=== PATIENT | female | born 2000 | race African-American/Black ===

== ENCOUNTER 2024-12-20 14:31 | Outpatient (REF) | payer OTHER, SELFPAY ==
[2024-12-20 18:08] LABS: MANUAL DIFF FLAG NO
[2024-12-20 18:11] LABS: Hematocrit 36.3 % (37.0-47.0); Hemoglobin 11.3 g/dl (12.0-16.0); Imm Gran Abs Auto 0.01 X10*3/uL (0.00-0.03); Imm Gran Pct Auto 0.2 % (0.0-0.4); Lymphocytes Absolute Auto 3.5 X10*3/uL (1.2-4.9); Mean Corpuscular HGB Conc 31.1 g/dl (31.0-35.0); Mean Corpuscular Hemoglobin 26.4 pg (27.0-33.0); Mean Corpuscular Volume 84.8 fL (80.0-98.0); NRBC Abs Auto 0.000 X10*3/uL (0.0-0.012); NRBC Pct Auto 0.0 /100WBC (0.0-0.2); Platelet Count 292 X10*3/uL (160-400); Red Blood Count 4.28 X10*6/uL (4.20-5.50); White Blood Count 6.7 X10*3/uL (4.8-10.8)
[2024-12-20 18:37] LABS: Alanine Aminotransferase 32 U/L (0-31); Albumin Level 4.8 g/dL (3.5-5.0); Alkaline Phosphatase 78 U/L (39-117); Anion Gap 12 (12-20); Aspartate Amino Transferase 30 U/L (5-31); Blood Urea Nitrogen 12 mg/dL (9-16); Calcium 9.9 mg/dL (8.4-10.2); Carbon Dioxide 23 mmol/L (22-29); Chloride 108 mmol/L (96-108); Cholesterol 156 mg/dL (<200); Estimated Glomerular Filt Rate > 60; HDL Cholesterol 36 mg/dL (>40); Magnesium 1.8 mg/dL (1.6-2.6); Potassium 4.0 mmol/L (3.3-5.1); Sodium 139 mmol/L (135-145); Total Protein 9.0 g/dL (6.5-8.0); Triglycerides 74 mg/dL (<150)
[2024-12-20 19:02] LABS: Folate 14.4 ng/mL (> or = 4.0); Vitamin B12 334 pg/mL (200-900)
[2024-12-21 04:32] LABS: Syphilis Screen Nonreactive (Nonreactive)
[2024-12-21 04:43] LABS: HBS Num1 1.33 mIU/mL (0-7.99); HBsAGNum1 0.39 S/CO (0.00-0.99); HIV Num 1 0.06 S/CO (0.00-0.99); Hepatitis B Surface Antigen Negative (Negative); ~HepC Num1 0.18 S/CO (0.00-0.79); ~Hepatitis B Surface Antibody NONREACTIVE (Nonreactive); ~Hepatitis C Antibody Nonreactive (Nonreactive)
[2024-12-21 05:52] LABS: CT PCR Urine NOT DETECTED (Not Detect.); NG PCR Urine NOT DETECTED (Not Detect.)
[2024-12-24 05:13] LABS: VITAMIN D (1,25 OH) D3 58 pg/mL; Vit D (1,25-Dihydroxy) Total 58 pg/mL (18-72); Vitamin D (1,25 OH) D2 <8 pg/mL
[2024-12-25 19:03] LABS: Chlamydia Pneumoniae Interp. Past Infection; Chlamydia Trachomatis IgA <1:16 titer (<1:16)
== END 2024-12-20 14:32 | disposition home or self-care (01) ==
LOC: HO.HKASLDS 14:31
PROVIDERS: PCP Student in an Organized Health Care Education/Training Program; Visit Provider Student in an Organized Health Care Education/Training Program
DX: Z76.89 Persons encountering health services in other specified circumstances (principal); Z11.4 Encounter for screening for human immunodeficiency virus [HIV]; M54.50 Low back pain, unspecified; G89.29 Other chronic pain; Z20.2 Contact with and (suspected) exposure to infections with a predominantly sexual mode of transmission
CPT/HCPCS: 80053; 80061; 82607; 82652; 82746; 83036; 83735; 84443; 85025; 86631; 86632; 86706; 86780; 86803; 87340; 87389; 87491; 87591; 99202

== ENCOUNTER 2024-12-20 14:31 | Outpatient (AMB) | payer OTHER, SELFPAY ==
--- NOTE | 2024-12-20 14:33 | A.OFFPC_ITS ---
Vital Signs 12/20/24 14:37 Height 5 ft 2.99 in Weight 123 lb BMI 21.8 BP 108/67 Blood Pressure Location Lt brachial Position Sitting Respiration 16 Pulse 88 Pulse Source Pulse Oximeter Temp 98.4 F Temp Source Oral Pulse Oximetry (%) 98 Oxygen Delivery Method Room Air Intake Visit Reasons: Establish care Intake Note: Patient is a new patient here to establish care for Lumbar pain after delivery x 1 year and left eye pain. Medical records requested from [facility]. Wage Conciliator Required: Yes Wage Conciliator Language: Brissa Mcdowell Wage Conciliator Name: Nicole ID: [id number] Accompanied by: Self / Same As Patient Allergies No Known Allergies Allergy (Verified 12/20/24 14:34) Tobacco use date assessed: 12/20/24 Dental Screening Dental Screen Date: 12/20/24 Did you have a dental visit in the last 12 months?: Yes Did you have a dental problem in the last 6 months where you did not have access to dental care?: No Was dental information given to patient?: Patient has dentist HPI HPI Comments History of Present Illness Details History of Present Illness The patient is a 24-year-old female presenting with low back pain. Low back pain: - History: The pain began approximately one month ago following childbirth. - Description: The pain is localized to the right side of the spine and is mild in nature. - Progression: The pain has persisted si nce onset without significant change. - Interventions: No prior interventions such as medication or physical therapy have been attempted. Review of Systems - Musculoskeletal: Reports mild pain on the right side of the spine 10-point ROS reviewed and negative excep t as noted in HPI Past Medical History Health Maintenance - Blood work: Complete blood count, comp rehensive metabolic panel, hemoglobin A1c, lipid panel - STI screening: Chlamydia, gonorrhea, s yphilis Physical Exam General: Well-appearing, in no acute distress. Vital signs: Within normal limits. HEENT: Normocephalic, atraumatic. PERRLA, EOMI. Conjunctiva clear, sclera anicteric. Oropharynx clear, mucous membranes moist. TMs intact bilaterally. Neck: Supple, no lymphadenopathy, no thyromegaly, no JVD or carotid bruits. Cardiovascular: RRR, normal S1/S2, no murmurs, rubs, or gallops. Peripheral pulses 2+ and symmetric. No edema. Respiratory: Lungs clear to auscultation bilaterally, no wheezes, rales, or rhonchi. Normal effort. Abdomen: Soft, non-tender, non-distended. Normoactive bowel sounds. No hepatosplenomegaly, no masses. MSK: Full range of motion, no joint swelling or deformity. Normal gait. Reports a little bit of pain on the right side of the spine when touching toes. Negative straight leg test. Skin: Warm, dry, intact. No rashes, lesions, or pallor. Neuro: Alert and oriented x3. Cranial nerves II-XII intact. Strength 5/5 throughout. Sensation intact. Reflexes 2+ symmetric. Normal coordination and gait. Psych: Appropriate mood and affect. Normal judgment and insight. Plan 1. Low Back Pain - Plan: Prescribe medication, recommend stretching exercises, and follow-up in two weeks. - Referral: Physical therapy referral pr ovided. Discussion Notes I discussed with the patient the plan to manage her low back pain, including prescribing medication and recommending stretching exercises. I also explained the importance of follow-up in two weeks to assess progress and the referral to physical therapy for further management. Patient was informed and verbally consented to the use of an ambient scribe for clinic note documentation during this visit. Patient Instructions - Take prescribed medication as directed . - Perform recommended stretching exercis es daily. - Attend physical therapy sessions as sc heduled. - Return for follow-up in two weeks. [facility] Medical History (Updated 12/20/24 @ 15:01 by Jamir Manrique MD) Chronic lower back pain Encounter for screening, unspecified Family History (Updated 12/20/24 @ 14:36 by Maria G Marc MA) Father No problems noted. Father No problems noted. Social History (Updated 12/20/24 @ 14:36 by Maria G Marc MA) Housing: Apartment Alcohol intake: current Alcohol intake frequency: does not drink Patient Tobacco Use Status: Never used Tobacco service: No Current occupational status: employed Cognitive needs: No Hearing needs: No Vision needs: No Questionnaire PHQ-9 Over the last 2 weeks, how often have you been bothered by any of the following problems? 1. Little interest or pleasure in doing things: not at all 2. Feeling down, depressed, or hopeless: not at all 3. Trouble falling or staying asleep, or sleeping too much: not at all 4. Feeling tired or having little energy: more than half the days 5. Poor appetite or overeating: not at all 6. Feeling bad about yourself - or that you are a failure or have let yourself or your family down: not at all 7. Trouble concentrating on things, such as reading the newspaper or watching television: not at all 8. Moving or speaking so slowly that other people could have noticed. Or the opposite - being so fidgety or restless that you have been moving around a lot more than usual: not at all 9. Thoughts that you would be better off or of hurting yourself in some way: not at all Total score: 2 Source: Developed by Drs. Thomas Lockhart, Yuliya Okeefe, Lj Nicholas and colleagues, with an educational sierra from [employer]. Thrive Questionnaire I am a: Patient What is your living situation today?: I have a steady place to live Within the past 12 months, did the food you bought not last and you didn't have the money to get more?: Never true Within the past 12 months, did you worry whether your food would run out before you got money to buy more?: Never true Do you have trouble paying for medicines?: No Do you have trouble getting transportation to medical appointments?: No Do you have trouble paying your heating and electricity bill?: Yes Do you have trouble taking care of your child, family member or friend?: No Are you currently unemployed and looking for a job?: No Are you interested in more education?: Yes Please select the resources that you would like help with: Education Currently or been in a relationship where the following occur: I choose not to answer THRIVE Score: 1 AUDIT C Alcohol Use Questionnaire (AUDIT-C) 1. How often do you have a drink containing alcohol?: Never Total Score: 0 DAVID-7 AMB Questionnaire DAVID-7 Feeling nervous, anxious, or on edge: 0 = Not at all Not being able to stop or control worryin = Not at all Worrying too much about different things: 0 = Not at all Trouble relaxin = Not at all Being so restless that it is hard to sit still: 0 = Not at all Becoming easily annoyed or irritable: 0 = Not at all Feeling afraid as if something awful might happen: 0 = Not at all Total DAVID-7 score (0-4 normal; 5-9 mild; 10-14 moderate; 15-21 severe): 0 Source: Developed by Drs. Thomas Lockhart, Yuliya Okeefe, Lj Nicholas and colleagues, with an educational sierra from [employer]. Physical exam (Primary Care) Vital Signs: Last Vital Signs Temp 98.4 F 12/20/24 14:37 Pulse 88 12/20/24 14:37 Resp 16 12/20/24 14:37 BP 108/67 12/20/24 14:37 Pulse Ox 98 12/20/24 14:37 Oxygen Delivery Method Room Air 12/20/24 14:37 BMI result Body Mass Index 21.8 Tobacco/Smoking Status: Tobacco use Status Tobacco use date assessed 12/20/24 12/20/24 14:40 Patient Tobacco Use Status Never used Tobacco 12/20/24 14:40 PHQ-9: PHQ-9 Score PHQ-9: Total score 2 12/20/24 14:40 Currently or been in a relationship where the following occur: I choose not to answer Coding Level of Care Code New Pt Level 3 (05042) Diagnoses Encounter for screening, unspecified Z13.9 Chronic lower back pain M54.50; G89.29 Establishing care with new doctor, encounter for Z Screening for depression Z13.31 Screening for diabetes mellitus Z13.1 Screening for lipoid disorders Z13.220 Screening for hypertension Z13.6 Screening for HIV (human immunodeficiency virus) Z11.4 Routine screening for STI (sexually transmitted infection) Z11.3 Assessment & Plan Assessment & Plan (1) Encounter for screening, unspecified: Code(s): Z13.9 - Encounter for screening, unspecified Category: Medical (2) Chronic lower back pain: Code(s): M54.50 - Low back pain, unspecified; G89.29 - Other chronic pain Category: Medical (3) Establishing care with new doctor, encounter for: Code(s): Z76.89 - Persons encountering health services in other specified circumstances (4) Screening for depression: Code(s): Z13.31 - Encounter for screening for depression (5) Screening for diabetes mellitus: Code(s): Z13.1 - Encounter for screening for diabetes mellitus (6) Screening for lipoid disorders: Code(s): Z13.220 - Encounter for screening for lipoid disorders (7) Screening for hypertension: Code(s): Z13.6 - Encounter for screening for cardiovascular disorders (8) Screening for HIV (human immunodeficiency virus): Code(s): Z11.4 - Encounter for screening for human immunodeficiency virus [HIV] (9) Routine screening for STI (sexually transmitted infection): Code(s): Z11.3 - Encounter for screening for infections with a predominantly sexual mode of transmission Plan Orders: Orders Hemoglobin A1c Today Z13.9 - Encounter for screening, unspecified, Z76.89 - Persons encountering health services in other specified circumstances Hepatitis B Surface Antibody Today Z13.9 - Encounter for screening, unspecified, Z76.89 - Persons encountering health services in other specified circumstances TSH reflex Free T4 Today Z13.9 - Encounter for screening, unspecified, Z76.89 - Persons encountering health services in other specified circumstances Vitamin B12 and Folate Today Z13.9 - Encounter for screening, unspecified, Z76.89 - Persons encountering health services in other specified circumstances Vitamin D 1,25 dihydroxy Today Z13.9 - Encounter for screening, unspecified, Z76.89 - Persons encountering health services in other specified circumstances PT Evaluation and Treatment Today G89.29 - Other chronic pain, M54.50 - Low back pain, unspecified Complete Blood Count Auto Diff Today Z13.9 - Encounter for screening, unspecified, Z76.89 - Persons encountering health services in other specified circumstances Comprehensive Met. Panel Today Z13.9 - Encounter for screening, unspecified, Z76.89 - Persons encountering health services in other specified circumstances Hepatitis B Surface Antigen Today Z13.9 - Encounter for screening, unspecified, Z76.89 - Persons encountering health services in other specified circumstances Hepatitis C Antibody Today Z13.9 - Encounter for screening, unspecified, Z76.89 - Persons encountering health services in other specified circumstances HIV Ab/Ag Today Z13.9 - Encounter for screening, unspecified, Z76.89 - Persons encountering health services in other specified circumstances Lipid Panel Today Z13.9 - Encounter for screening, unspecified, Z76.89 - Persons encountering health services in other specified circumstances Magnesium Today Z13.9 - Encounter for screening, unspecified, Z76.89 - Persons encountering health services in other specified circumstances Chlamydia Species Ab Panel Today Z13.9 - Encounter for screening, unspecified, Z76.89 - Persons encountering health services in other specified circumstances CT NG by PCR Urine Today Z13.9 - Encounter for screening, unspecified, Z76.89 - Persons encountering health services in other specified circumstances Syphilis Screen Today Z13.9 - Encounter for screening, unspecified, Z76.89 - Persons encountering health services in other specified circumstances Medications: New ibuprofen 800 mg PO Q8H 30 tabs 0RF G89.29 - Other chronic pain, M54.50 - Low back pain, unspecified
[2024-12-20 14:37] VITALS: BP 108/67; PULSE 88; RESP 16; TEMP 36.9; O2SAT 98; BMI 21.8
--- OUTSIDE RECORDS SUMMARY | 2024-12-20 15:41 | XMS_ITS ---
Author Organization [facility] Address [address] [place] [address] Phone Care Team Providers Care Rn Anesthesiology Name Role Phone Physician, No Pcp Primary Care Provider Unavaila ble Community Health Worker Program Status:Ongoing (Active) Start date:08/02/2024 Enrollment date:08/02/2024 Enrollment reason:Referred from clinic Related service episodes:[facility] - Housing (Closed), [facility] - Transportation (Closed), [facility] - Food Insecurity (Active) Overview Community Health Worker Program Case Team Name Relationship Phone Brian Larios(Responsible Staff) Community Health Worker Continued Care and Services Coordination
--- OUTSIDE RECORDS SUMMARY | 2024-12-20 15:41 | XMS_ITS | Encounter Summary ---
Author Organization [facility] Address [address] [place] [address] Care Team Providers Care Clerk General Name Role Phone Physician, No Pcp Primary Care Provider Unavaila ble Encounter Details Date Type Department Care Team (Late st Contact Info) Description 08/21/2024 Referral Triage Person [facility] [address] [place] [id number] Stiven Carreno Social History Tobacco Use Types Packs/Day Years Used Date Smoking Tobacco: Never Smokeless Tobacco: Current Alcohol Use Standard Drinks/Week Comments Never 0 (1 standard drink = 0.6 oz pur e alcohol) Housing Instability Answer Date Recorde d Are you worried that in the next 2 months you may not have stable housing? No 08/18/2024 Food Access & Nutrition Answer Date Rec orded Do you have access to a vari ety of food including fruits and vegetables? No 08/18/2024 Access to Healthcare Answer Date Record ed Within the last 3 months, ho w many times did you visit the emergency department for your medical care? 0 08/18/2024 Health Literacy Answer Date Recorded How often do you need to hav e someone help you when you read instructions, pamphlets, or other written material from your doctor or pharmacy? Sometimes 08/18/2024 Caregiver: How often do you need to have someone help you when you read instructions, pamphlets, or other written material from your doctor or pharmacy? Not on file 08/18/2024 Financial Risk Answer Date Recorded How hard is it for you to pa y for the very basics like food, housing, medical care, and air conditioning / heating? Very hard 08/18/2024 Transportation Answer Date Recorded Has the lack of transportati on kept you from meetings, work, or from getting things needed for daily living? Yes Has the lack of transportati on kept you from medical appointments or from getting medications? Yes 08/18/2024 Social Isolation Answer Date Recorded How often do you feel lonely or isolated from those around you? Sometimes 08/18/2024 Food Risk Answer Date Recorded Within the past 12 months we worried whether our food would run out before we got money to buy more. Never true 08/18/2024 Within the past 12 months th e food we bought just didn't last and we didn't have money to get more. Never true 08/18/2024 Dependent Care Answer Date Recorded Do you need help finding or paying for care for your loved ones. For example, palliative care physician or elderly care for an older adult? No 08/18/2024 Education Answer Date Recorded Do you think completing more education or training, like finishing a GED, going to college, or learning a trade, would be helpful for you? No 08/18/2024 Employment and Income Answer Date Recor ded During the last four weeks, have you been actively looking for work? No 08/18/2024 Living Situation Answer Date Recorded What is your living situation? Unrecognized valu e 08/18/2024 Comments Yes Sex and Gender Information Value Date Recorded Sex Assigned at Female 03/26/2024 2:13 PM EST Legal Sex Female 4:49 PM EST Gender Identity Female 03/26/2024 2:13 PM EST Sexual Orientation Straight 03/26/2024 2: 13 PM EST Occupation Industry Job Start Date Job End Date [employer] Not on file Not on file Not on kajal e documented as of this encounter Functional Status * Are you deaf or do you have serious difficulty hearing? Answer Date of Assessment Author No 04/01/2024 7:49 PM EST Leidy Ku RN * Are you blind or do you have serious difficulty seeing, even when wearing glasses? Answer Date of Assessment Author No 04/01/2024 7:49 PM EST Leidy Ku, KEVIN * Do you have serious difficulty walking or climbing stairs? Answer Date of Assessment Author No 04/01/2024 7:49 PM EST Leidy Ku RN * Do you have serious difficulty dressing or bathing? Answer Date of Assessment Author No 04/01/2024 7:49 PM Leidy Carney RN * Because of a physical, mental, or emotional condition, do you have serious difficulty doing errandsalone such as visiting the doctor? Answer Date of Assessment Author No 04/01/2024 7:49 PM Leidy Carney RN documented as of this encounter Mental Status * Because of a physical, mental, or emotional condition, do you have serious difficulty concentrating, remembering, or making decisions? (5 years old or older) Answer Entry Date Author No 04/01/2024 7:49 PM Leidy Carney RN documented in this encounter Progress Notes * Stiven Carreno - 08/21/2024 4:42 PM EDT Pt is already connected with the CHW program, Brian is currently the CHW working on her case. Brian, a new referral was sent to the triage for food insecurity, housing, transportation I know you are already working with her, I just wanted to have this documented. Stiven Carreno Community Health Worker (CHW) Visitor Services Associate/Regional documented in this encounter Plan of Treatment Upcoming Encounters Date Type Department Care Team (Late st Contact Info) Description 02/28/2025 3:00 PM EST Clinical Support Obstetrics and Gynecology [address] [id number] documented as of this encounter Visit Diagnoses Not on filedocumented in this encounter Care Teams Clerk General Relationship Specialty Start Date End Date Physician, No Pcp PCP - General 03/26/24 documented as of this encounter
--- OUTSIDE RECORDS SUMMARY | 2024-12-20 15:41 | XMS_ITS | Clinical Summary ---
Author Organization [facility] Address [address] [place] [address] Phone Care Team Providers Care Team Cdl Driver Name Role Phone Physician, No Pcp Primary Care Provider Unavaila ble Allergies No known active allergies Medications vitamin iron fum-folic acid 27-0.8 mg per tablet Take 1 tablet by mouth 1 (one) time each day. 90 each 3 05/19/2024 05/19/19 26 Active ferrous gluconate (FERGON) 324 mg (38 mg iron) tablet Take 1 tablet (324 mg total) by mouth 1 (one) time each day. 90 each 1 09/14/2024 03/13/20 25 Active ibuprofen (ADVIL,MOTRIN) 600 mg tablet Take 1 tablet (600 mg total) by mouth every 6 (six) hours if needed for moderate pain. 30 tablet 10/11/2024 Active labetaloL (NORMODYNE) 100 mg tablet TAKE 1 TABLET BY MOUTH TWICE A DAY 180 tablet 10/12/2024 Active medroxyPROGESTE Duncan 150 mg/mL injection Inject 1 mL (150 mg total) into the shoulder, thigh, or buttocks 1 (one) time for 1 dose. 1 mL 3 11/22/2024 Active Hospital, Clinic, or Other Facility Administered Medication Ordered Dose Route Frequency Start Date End Date Status medroxyPROGESTERone (DEPO-PROVERA) injection 150 mgIndications:Routine follow-up,Encounter for screening for maternal depression 150 mg IM Once 11/22/2024 Active medroxyPROGESTERone (DEPO-PROVERA) injection 150 mgIndications:Surveillance for medroxyprogesterone contraception 150 mg IM Once 12/06/2024 12/06/2024 Ended Active Problems Problem Noted Date Diagnosed Date Gestational hypertension, third trimester 2024 Overview (10/11/2024): Negative PEC panel, urine tp cr ratio 0.16 D/c home on labetalol 100 BID. Normal labor 10/07/2024 GBS (group B Streptococcus c arrier), +RV culture, currently 09/18/2024 Overview (09/18/2024): IP prophylaxis Transportation insecurity 08/18/2024 Overview (08/18/2024): Seeing Misbah QUINTANILLA Food insecurity 08/18/2024 Overview (08/18/2024): Seeing Misbah QUINTANILLA Housing insecurity 08/18/2024 Overview (08/18/2024): Seeing Misbah QUINTANILLA Does not have health insurance 07/21/2024 Overview (08/18/2024): 07/21/2024 Working with Misbah QUINTANILLA to get it reinstated, will offer TDaP and 28 week labs at that time. Please resend Fe rx and confirm appt with Hematology and repeat growth with [facility] 08/18/2024 Pt reports that she now has [facility], TDaP today and orders for heme consult and growth scan placed growth restriction antepartum 07/08/2024 Overview (10/07/2024): 07/07/2024 EFW 14%, [facility] recommends f/u growth in 4 weeks 08/28/2024: Est. FW: 1863 gm 4 lb 2 oz 7 % dopplers normal; recommending weekly NST's has follow up U/S for 3 weeks per [facility] 09/18/2024 EFW 39% - no further eval needed per [facility] Alpha thalassemia silent carrier 06/05/2024 Overview (06/05/2024): Horizon 14 Panel Positive: Silent Carrier for Alpha Thalassemia (aa/a-). 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 Depending on carrier status of the patient's partner, this couple may be at increased risk to have a child with Hemoglobin H Disease. Carrier screening of the patient's partner is suggested. Partner to be tested- order & kit at [facility] on Pap smear of cervix 06/01/2024 Overview (06/01/2024): Per [facility], needs repeat Pap smears in one and two years Encounter for supervision of normal first in third trimester 05/22/2024 Overview (09/18/2024): 1. [facility] site: [place] [facility]: [address] [place] [phone] ([phone]) 2. Delivery site: [facility] 3. Mobile Mommas: No 4. Dating criteria: early ultrasound 5. Blood type: O+ 6. Genetic screening: Panorama: low-risk Horizon: alpha thal silent carrier Nuchal: Ordered Survey: MSAFP: 6. GBS: Date: 09/14 pos 7. FOB name: 8. Plans A. Epidural or other pain management - B. Labor support identified - C. Tdap - Date: 08/18/2024 Flu - Date: 05/24/2024 D. Breast or Bottle feed: E. Baby's name - F. Circumcision - 9. Hospital Course: Language barrier 05/22/2024 Overview (05/22/2024): Jamaican Creole interpretor needed for appts Anemia affecting in third trimester Overview (09/24/2024): Lab Results Component Value Date WBC 6.4 05/19/2024 RBC 3.20 (L) 05/19/2024 HGB 8.9 (L) 05/19/2024 HCT 28.0 (L) 05/19/2024 MCV 87.0 05/19/2024 MCHC 31.8 (L) 05/19/2024 RDW 13.2 05/19/2024 PLT 268 05/19/2024 MPV 10.1 05/19/2024 NRBC 0.0 05/19/2024 DIFF Lab Results Component Value Date LYMPHOPCT 32.0 05/19/2024 NEUTROABS 3.78 05/19/2024 LYMPHSABS 2.05 05/19/2024 MONOABS 0.51 05/19/2024 EOSABS 0.03 05/19/2024 BASOSABS 0.01 05/19/2024 IMMGRANABS 0.03 05/19/2024 05/19/2024 Iron twice daily ordered for anemia recheck CBC in 2-3 weeks 05/24/2024 Pt did not bean picker prescription, rx resent, advised to start today and will recheck CBC NV 06/27/2024 hgb 7.9, referred to hematology 09/21: -Published evidence reports that intravenous iron is safe and effective in the second and third trimesters of . Intravenous iron is the preferred route when the anemia is severe in the second trimester or at any time in the third trimester when there is little expectation that adequate quantities of iron will be delivered to the fetus as iron requirements increase in each trimester. -Given the advanced stage of , the potential benefits of iron infusion were discussed, noting that the response time might extend beyond the delivery date. Risks and side effects of iron infusion, including the rare risk of inducing labor and allergic reactions, were thoroughly explained. -Update labs; infusions will be ordered if indicated (patient verbally consents to it) -She is aware that if Hgb drops further, she may need to go to the ER for a blood transfusion (because we wouldn't be able to get her in until next week) -FOV prn -Follow up with collar stay fuser tender team for further management of Resolved Problems Problem Noted Date Diagnosed Date Resolved Date Threatened labor at term 10/05/2024 39 weeks gestation of 10/05/2024 10/07/2024 Encounters Date Type Department Care Team Description 12/06/2024 2:00 PM EDT Clinical Support Obstetrics and Gynecology - [facility] [address] [place] [phone] examination or test, negative result (Primary Dx); Adverse effect of medroxyprogesterone, initial encounter; Surveillance for medroxyprogesterone contraception 11/29/2024 [facility] Community Health Worker Program [address] [place] [phone] Brian Larios 11/22/2024 10:15 AM EDT Visit Obstetrics and Gynecology - [address] [phone] Miryam Myers CNM Routine follow-up (Primary Dx); Encounter for screening for maternal depression 10/17/2024 10:00 AM EDT Routine Obstetrics and Gynecology - [address] [phone] Blood pressure check (Primary Dx) 10/07/2024 9:40 AM EDT Anesthesia Event [address] [phone] Pricne Calvo DO 10/07/2024 2:42 AM EDT - 10/11/2024 6:26 PM EDT Hospital Encounter [address] [phone] Christo Gaspar MD Gestational hypertension, third trimester (Primary Dx); Normal labor; GBS (group B Streptococcus carrier), +RV culture, currently ; Housing insecurity; Food insecurity; Transportation insecurity; Does not have health insurance; growth restriction antepartum; Alpha thalassemia silent carrier; LGSIL on Pap smear of cervix; Language barrier; Encounter for supervision of normal first in third trimester; Anemia affecting in third trimester Discharge Disposition: Home or Self Care 10/05/2024 7:25 PM EDT - 10/05/2024 8:55 PM EDT Hospital Encounter [address] [phone] Myrna Golden DO Eppsteiner, Erin E, MD Discharge Disposition: Home or Self Care 10/04/2024 2:00 PM EDT Routine Obstetrics and Gynecology - [address] [phone] Miryam Myers CNM Supervision of high risk in third trimester (Primary Dx); growth restriction antepartum; 39 weeks gestation of 09/27/2024 1:30 PM EDT Routine Obstetrics and Gynecology [address] [phone] Miryam Myers, STEPHANIEM Supervision of high risk in third trimester (Primary Dx); 38 weeks gestation of ; growth restriction antepartum 09/21/2024 11:00 AM EDT Office Visit [facility] Hematology Oncology [address] [place] [phone] Dee Escobar PA Anemia affecting in third trimester (Primary Dx); Third trimester from Last 3 Months Immunizations Immunization Administration Dates Next Due Influenza trivalent, MDCK, 0 .5mL, preservative free (Flucelvax) 6mo and older 05/24/2024 Tdap Tetanus diptheria acell ular pertussis (Boostrix; Adacel) 7yo and older 08/18/2024 Surgical History Surgery Date Site/Laterality Comments NO PAST SURGERIES Medical History Medical History Date Comments Patient denies medical problems Social History Tobacco Use Types Packs/Day Years Used Date Smoking Tobacco: Never Smokeless Tobacco: Current Tobacco Cessation:Ready to Q uit: Not Asked; Counseling Given: Not Answered Alcohol Use Standard Drinks/Week Comments Never 0 [...] care for your loved ones. For example, early childhood director or elderly care for an older adult? [...] your living situation? Unrecognized valu e 08/18/2024 Interpersonal Safety Answer Date Record ed Physical Abuse Unrecognized value 10/07/2024 Verbal Abuse Unrecognized value 10/07/2024 Comments No Sex and Gender Information Value Date Recorded Sex Assigned at Female 03/26/2024 2:13 PM EST Legal Sex Female 4:49 PM EST Gender Identity Female 03/26/2024 2:13 PM EST Sexual Orientation Straight 03/26/2024 2: 13 PM EST Occupation Industry Job Start Date Job End Date [employer] Not on file Not on file Not on kajal e Obstetrics History Para Term AB IAB SAB Ectopic Multiple Livin g Live Births 1 1 1 0 1 1 Date Outcome GA Total Labor Labor/2nd/3rd Weight Sex Type Anes PTL Bruna A1 A5 Name Clin 2024 Term 39w 6d 16h 01m 13h 33m/2h 25m/0h 03m 2970 g (104.8 oz) F Vag-S pont IV,Ep idura l N Livin g 6 9 Helen Mendez CNM Complications:None Delivery Location:[facility] ([facility] Summary Episode Dates Number of Fetuses Estimated Date of Delivery 05/19/2024 - Present (12/20/2024) 1 10/09/2024 (set by Todd guillen CNM on 05/19/2024 based on Ultrasound on 03/25/2024) Dating Summary Based On MIA GA Diff Ultrasound on 03/25/2024 10/09/2024 Working GA:11w5d Alternate MIA Entry 10/08/2024 +1d Comment:Date entered prior t o episode creation Overview and Plan :Antonio Delivery Plans Acceptable blood products:All Vitals Pregravid Weight Height TWG (As of 12/20/2024) Pregrav id BMI 56.7 kg (125 lb) 1.5 m (59.06 ) 5.601 kg (12 lb 5.6 oz ) 25.20 Date GA Fund Present FHR Mvmt BP Weight Edema Alb Glu Ket Dil/ Eff/Sta 05/25/19 25 20w2d 112/6 8 57.2 kg 05/25/19 25 20w2d 0/0/ 10/06/19 25 39w3d Inpatient data not displayed here. See encounter summary. 10/08/19 25 39w6d Inpatient data not displayed here. See encounter summary. Notes Progress Notes - Visit - 11/22/2024 - GA:39w6d 11/22/2024 - 39w6d - Miryam Myers CNM Subjective Patient ID: Farrukh Mc is a 24 y.o. female. S/p , 10/08 is currently She is breast feeding with some supplementation. Contraception plan: DepoProvera [place] Depression Scale: In the Past 7 Days I have been able to laugh and see the funny side of things.: As much as I always could I have looked forward with enjoyment to things.: As much as I ever did I have blamed myself unnecessarily when things went wrong.: No, never I have been anxious or worried for no good reason.: No, not at all I have felt scared or panicky for no good reason.: No, not at all Things have been getting on top of me.: Yes, sometimes I haven't been coping as well as usual I have been so unhappy that I have had difficulty sleeping.: Yes, most of the time I have felt sad or miserable.: No, not at all I have been so unhappy that I have been crying.: No, never The thought of harming myself has occurred to me.: Hardly ever [place] Depression Scale Total: 6 Chief Complaint Patient presents with Follow-up Review of Systems Constitutional: Negative for chills, fatigue and fever. Respiratory: Negative for shortness of breath. Gastrointestinal: Negative for abdominal pain. Endocrine: Negative for cold intolerance and heat intolerance. Genitourinary: Negative for difficulty urinating, dysuria, frequency, pelvic pain, urgency, vaginal bleeding and vaginal discharge. Musculoskeletal: Negative for back pain and joint swelling. Neurological: Negative for light-headedness and headaches. Objective Vitals BP: 108/71 Weight: 56.4 kg (124 lb 6.4 oz) Physical Exam Constitutional: Appearance: Normal appearance. Genitourinary: Comments: Perineum intact Neurological: Mental Status: She is alert and oriented to person, place, and time. Assessment/Plan Routine follow-up (Primary) - medroxyPROGESTERone (DEPO-PROVERA) injection 150 mg Encounter for screening for maternal depression - Health and behavioral assessment; Future - medroxyPROGESTERone (DEPO-PROVERA) injection 150 mg Other orders - medroxyPROGESTERone 150 mg/mL injection; Inject 1 mL (150 mg total) into the shoulder, thigh, or buttocks 1 (one) time for 1 dose. Dispense: 1 mL; Refill: 3 F/u routinely Return for depo injection Pt counseled on infant pediatrian care since baby has not been seen since d/c from hospital, was escorted to pediatric dept however insurance not taken pt was given instructions to call insurance, Called dr vines at [facility] to review the findings of care, will contact [facility] to see if they can instruct pt to change her medicaid for [facility] to cover care Progress Notes - Routine Pre - 10/17/2024 - GA:39w6d 10/17/2024 - 39w6d - Angle Taylor MA Patient was seen today (10/17/2024) for blood pressure check 118/76. Pt state she has no headache and blurred vision. 10 days PP, OCP, SOB, SUTHERLAND, or visual, just feeling tired, taking PNV taking labetalol BID f/u. PP visit in 4 weeks. After School Teacher (Anusha)#[id number]. Progress Notes - Hospital En counter - 10/11/2024 - GA:39w6d 10/11/2024 - 39w6d - Lorena Nicole CNM Obstetrics Progress Note After School Teacher [id number] used Subjective Subjective Pain: denies cramps, reports pain to the perineum Bleeding: lochia moderate PO's: regular diet Voiding: without difficulty Ambulating: well Feeding: breast and formula feeding She denies headaches, visual changes and epigastric pain Objective Objective: Vital signs: (most recent): Blood pressure 132/75, pulse 74, temperature 36.8 C (98.2 F), temperature source Temporal, resp. rate 16, height 1.575 m (62.01 ), weight 62.3 kg (137 lb 5.6 oz), SpO2 100%, currently . Vitals Temp: 36.8 C (98.2 F) (10/10 2150) Heart Rate: 74 (10/10 2150) Resp: 16 (10/10 2150) BP: 132/75 (10/10 2150) Physical Exam General: well Chest/Breasts: nipples intact and breast filling Abdomen: Soft, non tender, Funds at 1 FB below midline Lochia:moderate Perineum:edema noted, no hemorrhoids Extremities: symmetric trace pedal edema Data Labs Reviewed and Significant for: Lab Results Component Value Date RBC 3.50 (L) 10/10/2024 HCT 30.2 (L) 10/10/2024 Principal Problem: Normal labor Active Problems: Anemia affecting in third trimester GBS (group B Streptococcus carrier), +RV culture, currently Elevated blood pressure reading Status Information for the patient's : Junior Mc [[id number]] [facility] 7010/[facility] 7010-1 Problem-based Assessment and Plan Farrukh Mc is a 24 y.o. day 3 s/p Vaginal, Spontaneous. 1. Post care: meeting all goals 2. Hemodynamics: stable 3. Pain: controlled 4. Method of Feeding: breast and formula feeding 5. Normotensive with labetalol 100 BID 6. Stable for discharge home today. RTO in 2-3 days for bp recheck and in 6 weeks for routine care. Lorena Nicole CNM 10/11/2024 10/10/2024 - 39w6Todd Wagoner CNM Obstetrics Progress Note Subjective Subjective: Symptoms: No shortness of breath or headache. Diet: Adequate intake. Activity level: Normal. Pain: She complains of pain that is mild. Pain is well controlled. Pain: reports mild Bleeding: lochia minimal PO's: regular diet Voiding: without difficulty Ambulating: well Feeding: breast and formula feeding Jamaican Creole After School Teacher Tereza #[id number] Used for today's ecounter She is feeling well this AM. Reports mild pain. She denies a SUTHERLAND or blurry vision at present, but reports that she Gets a SUTHERLAND every day if she does not get enough sleep . BP's were elevated yesterday and PEC labs were all WNL. She is moving her bowels and voiding normal. Bleeding is minimal. She lives with her and he is very supportive. She is breast and bottle feeding. Would like the Nexplanon for control PP. Objective Objective: General Appearance: Comfortable and well-appearing. Vital signs: (most recent): Blood pressure 128/79, pulse 63, temperature 36.9 C (98.5 F), resp. rate 19, height 1.575 m (62.01 ), weight 62.3 kg (137 lb 5.6 oz), SpO2 100%, currently . Vital signs are normal. Output: Producing urine and producing stool. Lungs: Normal effort and normal respiratory rate. Breath sounds clear to auscultation. Heart: Normal rate. Regular rhythm. Extremities: Normal range of motion. Pulses: Distal pulses are intact. Neurological: Patient is alert and oriented to person, place and time. Skin: Warm and dry. Vitals Temp: 36.9 C (98.5 F) (10/10 011) Heart Rate: 63 (10/10 117) Resp: 19 (10/10 117) BP: 128/79 (10/10 0407) Physical Exam General: well Chest/Breasts: nipples intact Fundus Fundal Tone: Firm Fundal Position: Midline Fundus Location: 1 below umbilicus Lochia Lochia Color: Rubra Amount: Light Lochia Odor: None Clots: None Perineum Appearance: Well approximated Intervention: Ice off Extremities: symmetric and no edema Data Labs Reviewed and Significant for: Lab Results Component Value Date RBC 3.40 (L) 10/09/2024 HCT 29.5 (L) 10/09/2024 Principal Problem: Normal labor Active Problems: Anemia affecting in third trimester GBS (group B Streptococcus carrier), +RV culture, currently Elevated blood pressure reading Status Information for the patient's : Junior Mc [[id number]] [facility] 7010/[facility] 7010-1 Problem-based Assessment and Plan Farrukh Mc is a 24 y.o. day 2 s/p Vaginal, Spontaneous. 1. Post care: meeting all goals 2. Hemodynamics: stable 3. Pain: controlled 4. Method of Feeding: breast and formula feeding 5. Anticipate discharge today after 1600 due to elevated BP's , reviewed normal labs and TP/Cr that was 0.16 explained not preeclampsia, but she should be seen in the office by the end of this week for BP check after discharge and then her normal 4-6 week PP visit as well. Todd Irizarry CNM 10/10/2024 10/09/2024 - 39w6d - Carmella Vyas MD Patient Vitals for the past 24 hrs: BP Temp Temp src Pulse Resp SpO2 10/09/24 2018 137/85 36.4 C (97.5 F) -- 63 18 100 % 10/09/24 1900 (!) 145/78 -- -- -- -- -- 10/09/24 1830 (!) 153/85 -- -- -- -- -- 10/09/24 1802 (!) 150/82 -- -- -- -- -- 10/09/24 1747 (!) 150/71 -- -- -- -- -- 10/09/24 1730 (!) 151/79 -- -- -- -- -- 10/09/24 1712 139/82 -- -- -- -- -- 10/09/24 1658 (!) 142/75 -- -- -- -- -- 10/09/24 1543 (!) 160/85 -- -- -- -- -- 10/09/24 1533 (!) 160/89 -- -- -- -- -- 10/09/24 1531 (!) 162/89 36.3 C (97.3 F) Temporal 57 16 100 % 10/09/24 0755 135/78 36.5 C (97.7 F) Temporal 65 16 100 % 10/09/24 0100 129/70 36.8 C (98.2 F) Temporal 80 16 100 % Farrukh Mc, 24 y.o., s/p #1. PPD1 Elevated BP r/O Preeclampsia Plan: -Closely Monitor BP and vital signs. -Titrate antihypertensives as needed. IV protocol ordered. -Follow up PIH labs, prot/creat ratio -Routine care -Consider Magnesium sulfate Counseled about preeclampsia. Risk and complications of preeclampsia discussed, including but not limited to risk of cardiovascular events: stroke, renal impairment,,proteinuria placental insufficiency, increased liver enzymes, risk of eclampsia, HELLP syndrome, persistency of hypertension, seizures, neurologic sequela, pulmonary edema, oliguria, increase of maternal mortality. Patient was explained about her condition and plan of care. Patient verbalized understanding of plan of care. All questions answered. 10/09/2024 - 39w6d - Carmella Vyas MD Progress note Subjective: Patient is feeling good and has no complaints. She states that abdominal pain is controlled with medications. She is tolerating regular diet, passing gas, no bowel movement yet. She states that vaginal bleeding is trending down. She is currently . Denies SOB, CP, dizziness, palpitations, fevers or any other complaints. Objective: Vitals: 10/08/24 0755 10/08/24 1556 10/09/24 0100 10/09/24 0755 BP: 115/76 108/72 129/70 135/78 BP Location: Left arm Patient Position: Lying Pulse: 88 84 80 65 Resp: 16 16 16 16 Temp: 36.7 C (98.1 F) 36.5 C (97.7 F) 36.8 C (98.2 F) 36.5 C (97.7 F) TempSrc: Temporal Temporal Temporal Temporal SpO2: 100% 100% 100% 100% Weight: Height: Physical Exam General : Alert, oriented x 3 Heart: RRR Abdomen: Soft, no tenderness, no peritoneal signs. Incision healed, dry, clean without any inflammatory signs. Extremities: No leg edema present No intake or output data in the 24 hours ending 10/09/24 1235 Lab Results Component Value Date WBC 11.6 (H) 10/07/2024 HGB 10.1 (L) 10/07/2024 HCT 31.7 (L) 10/07/2024 MCV 86.4 10/07/2024 PLT 210 10/07/2024 A/P: Farrukh Mc, 24 y.o., s/p #1. PPD1 Postop care -Uncomplicated -Meeting all milestones Acute blood loss anemia -Asymptomatic DVT prophylaxis -Encourage ambulation and SCD while in bed. Obesity Body mass index is 25.11 kg/m . Plan: -Continued monitoring of vital signs -Routine care -Anticipated discharge tomorrow Patient was explained about her condition and plan of care. Patient verbalized understanding of plan of care. All questions answered. 10/08/2024 - 39w6d - Barbara Rock LCSW Sw met with the pt at the bedside with Video stock holder Demetri #[id number] sw was consulted due to reports of housing issues and food insecurity, pt states that she lives with the FOB she does get food stamps and she will be getting WIC pt does not have a car seat in the room she states that she will have someone bring her one before she is ready to d/c pt will d/c home no services 10/08/2024 - 39w6d - Deepika Mendez CNM Obstetrics Progress Note Jamaican tyson stock holder used: [id number] Subjective Subjective Pain: reports mild cramping controlled with Tylenol and Motrin Bleeding: lochia moderate PO's: regular diet Voiding: without difficulty Ambulating: well Feeding: breast and formula feeding Objective Objective: Vital signs: (most recent): Blood pressure 115/76, pulse 88, temperature 36.7 C (98.1 F), temperature source Temporal, resp. rate 16, height 1.575 m (62.01 ), weight 62.3 kg (137 lb 5.6 oz), SpO2 100%, unknown if currently . Vitals Temp: 36.7 C (98.1 F) (10/08 075) Heart Rate: 88 (10/08 075) Resp: 16 (10/08 075) BP: 115/76 (10/08 075) Physical Exam General: well Chest/Breasts: nipples intact Fundus Fundal Tone: Firm Fundal Position: Midline Fundus Location: 2 below umbilicus Lochia Lochia Color: Rubra Amount: Light Lochia Odor: None Clots: None Perineum Appearance: Swollen - no signs of hematoma, we discussed the importance of nicola care and ice packs - she is agreeable at this time. Intervention: Nicola bottle, Medicated pads, ice packs Extremities: symmetric Data Labs Reviewed and Significant for: Lab Results Component Value Date RBC 3.70 (L) 10/07/2024 HCT 31.7 (L) 10/07/2024 Principal Problem: Normal labor Active Problems: Anemia affecting in third trimester GBS (group B Streptococcus carrier), +RV culture, currently Status Information for the patient's : Junior Mc [[id number]] [facility] 7010/[facility] 7010-1 Problem-based Assessment and Plan Farrukh Mc is a 24 y.o. day 0 s/p Vaginal, Spontaneous. 1. Post care: meeting all goals 2. Hemodynamics: stable 3. Pain: controlled 4. Method of Feeding: breast and formula feeding 5. Anticipate discharge tomorrow Deepika Mendez CNM 10/08/2024 10/07/2024 - 39w5mary - Vince Sims MD OB Progress Note Subjective Patient is currently having an epidural placed for pain management, She presented with SROM and GBS positive undergoing prophylaxis with PCN. Objective Patient Active Problem List Diagnosis Date Noted Date Diagnosed Normal labor 10/07/2024 GBS (group B Streptococcus carrier), +RV culture, currently 09/18/2024 IP prophylaxis Transportation insecurity 08/18/2024 Seeing Misbah QUINTANILLA Food insecurity 08/18/2024 Seeing Misbah QUINTANILLA Housing insecurity 08/18/2024 Seeing Misbah QUINTANILLA Does not have health insurance 07/21/2024 07/21/2024 Working with Misbah QUINTANILLA to get it reinstated, will offer TDaP and 28 week labs at that time. Please resend Fe rx and confirm appt with Hematology and repeat growth with TAI 08/18/2024 Pt reports that she now has [employer] [facility], TDaP today and orders for heme consult and growth scan placed growth restriction antepartum 07/08/2024 07/07/2024 EFW 14%, [facility] recommends f/u growth in 4 weeks 08/28/2024: Est. FW: 1863 gm 4 lb 2 oz 7 % dopplers normal; recommending weekly NST's has follow up U/S for 3 weeks per [facility] 09/18/2024 EFW 39% - no further eval needed per [facility] Alpha thalassemia silent carrier 06/05/2024 Horizon 14 Panel Positive: Silent Carrier for Alpha Thalassemia (aa/a-). 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 Depending on carrier status of the patient's partner, this couple may be at increased risk to have a child with Hemoglobin H Disease. Carrier screening of the patient's partner is suggested. Partner to be tested- order & kit at [facility] on Pap smear of cervix 06/01/2024 Per [facility], needs repeat Pap smears in one and two years Encounter for supervision of normal first in third trimester 05/22/2024 1. [facility] site: [place] [facility]: [address] [place] [address] ([phone]) 2. Delivery site: [facility] 3. Mobile Mommas: No 4. Dating criteria: early ultrasound 5. Blood type: O+ 6. Genetic screening: Panorama: low-risk Horizon: alpha thal silent carrier Nuchal: Ordered Survey: MSAFP: 6. GBS: Date: 09/14 pos 7. FOB name: 8. Plans A. Epidural or other pain management - B. Labor support identified - C. Tdap - Date: 08/18/2024 Flu - Date: 05/24/2024 D. Breast or Bottle feed: E. Baby's name - F. Circumcision - 9. Hospital Course: Language barrier 05/22/2024 Jamaican Creole interpretor needed for appts Anemia affecting in third trimester 05/19/2024 Lab Results Component Value Date WBC 6.4 05/19/2024 RBC 3.20 (L) 05/19/2024 HGB 8.9 (L) 05/19/2024 HCT 28.0 (L) 05/19/2024 MCV 87.0 05/19/2024 MCHC 31.8 (L) 05/19/2024 RDW 13.2 05/19/2024 PLT 268 05/19/2024 MPV 10.1 05/19/2024 NRBC 0.0 05/19/2024 DIFF Lab Results Component Value Date LYMPHOPCT 32.0 05/19/2024 NEUTROABS 3.78 05/19/2024 LYMPHSABS 2.05 05/19/2024 MONOABS 0.51 05/19/2024 EOSABS 0.03 05/19/2024 BASOSABS 0.01 05/19/2024 IMMGRANABS 0.03 05/19/2024 05/19/2024 Iron twice daily ordered for anemia recheck CBC in 2-3 weeks 05/24/2024 Pt did not bean picker prescription, rx resent, advised to start today and will recheck CBC NV 06/27/2024 hgb 7.9, referred to hematology 09/21: -Published evidence reports that intravenous iron is safe and effective in the second and third trimesters of . Intravenous iron is the preferred route when the anemia is severe in the second trimester or at any time in the third trimester when there is little expectation that adequate quantities of iron will be delivered to the fetus as iron requirements increase in each trimester. -Given the advanced stage of , the potential benefits of iron infusion were discussed, noting that the response time might extend beyond the delivery date. Risks and side effects of iron infusion, including the rare risk of inducing labor and allergic reactions, were thoroughly explained. -Update labs; infusions will be ordered if indicated (patient verbally consents to it) -She is aware that if Hgb drops further, she may need to go to the ER for a blood transfusion (because we wouldn't be able to get her in until next week) -FOV prn -Follow up with collar stay fuser tender team for further management of Resolved Problems Diagnosis Date Diagnosed Threatened labor at term 39 weeks gestation of Current Medications: lactated Ringer's, 125 mL/hr, Last Rate: 999 mL/hr (10/07/24 0848) oxytocin, 42-333 david-units/min fentaNYL (PF)-BUPivacaine-NaCl, , , miSOPROStoL, 800 mcg, sublingual, Once oxytocin in sodium chloride 0.9 %, , , penicillin G potassium, 3 Million Units, intravenous, q4h sodium chloride, 10 mL, intravenous, BID tranexamic acid, 1 g, intravenous, Once Last Recorded Vitals: Patient Vitals for the past 24 hrs: BP Temp Temp src Pulse Resp SpO2 Height Weight 10/07/24 0929 -- 36.2 C (97.1 F) Temporal -- -- -- -- -- 10/07/24 0731 121/74 -- -- 93 -- -- -- -- 10/07/24 0730 -- 36.4 C (97.5 F) Temporal -- 16 100 % -- -- 10/07/24 0544 110/70 35.9 C (96.7 F) Temporal 91 16 -- -- -- 10/07/24 0357 126/78 -- -- 90 -- -- -- -- 10/07/24 0356 -- 36.6 C (97.8 F) Temporal -- -- -- -- -- 10/07/24 0315 -- -- -- -- -- -- 1.575 m (62.01 ) 62.3 kg (137 lb 5.6 oz) 10/07/24 0248 119/70 35.9 C (96.7 F) Temporal 93 18 -- -- -- Input/Output: No intake/output data recorded. No intake or output data in the 24 hours ending 10/07/24 0932 OBGyn Exam Last Cervical Exam: 5 cm dilated, 100 % effaced, -1 station. The fetus is in a Cephalic presentation and position. Heart Monitoring Info: Baseline 115, moderate variability, no accelerations or decelerations present. Lab Results: Recent Results (from the past 48 hours) Complete blood count Collection Time: 10/07/24 3:45 AM Result Value Ref Range WBC 11.6 (H) 4.8 - 10.8 K/mcL RBC 3.70 (L) 3.80 - 4.80 M/mcL Hemoglobin 10.1 (L) 11.5 - 16.0 g/dL Hematocrit 31.7 (L) 35.0 - 47.0 % MCV 86.4 79.0 - 98.0 FL MCH 27.5 27.0 - 32.0 pcg MCHC 31.9 (L) 32.0 - 37.0 g/dL RDW 13.6 11.0 - 15.0 % Platelets 210 130 - 400 K/mcL MPV 10.7 7.0 - 11.0 FL NRBC 0.0 <1.0 % NRBC Absolute 0.00 <0.10 K/mcL Type and screen Collection Time: 10/07/24 3:45 AM Result Value Ref Range ABO Group O Rh Type Positive Antibody Screen Negative Treponema pallidum antibody with reflex to RPR and particle agglutination Collection Time: 10/07/24 3:45 AM Result Value Ref Range T. Pallidum Antibodies Negative Negative Imaging Results: US OB Followup per Fetus OBSTETRICS REPORT (Signed Final 09/18/2024 05:14 pm) PATIENT INFO: ID #: [id number] : [birth year] (24 yrs)(F) Name: FARRUKH MC Visit Date: 09/18/2024 12:52 pm PERFORMED BY: Attending: Kassidy Dixon MD Performed By: Rosales Isaacs RDMS Referred By: Todd Irizarry [facility] Ref. Address: [address] [place] [address] Location: [facility] ([facility]) SERVICE(S) PROVIDED: [place] [id number] INDICATIONS: Maternal care for other known or suspected O36.5930 poor fet 37 weeks gestation of Z3A.37 TECHNIQUE/SCAN QUALITY: Technique: Transabdominal Scan Satisfactory Quality: OB HISTORY: : 1 Term: 0 Marvel: 0 SAB: 0 TOP: 0 Ectopic: 0 Livin VITAL SIGNS: Weight (lb) Height BMI 133 4'8 29.81 EVALUATION: Number Of Fetuses: 1 Heart Rate(bpm): 136 Cardiac Activity: Observed Presentation: Cephalic Placenta Location: Posterior Appearance: Grade 2 Relation to CVX: No previa Amniotic Fluid HOLLY FV: Within Normal Limits RUQ(cm) RLQ(cm) LUQ(cm) LLQ(cm) 3.97 2.8 3.9 4.38 HOLLY Sum(cm) %Tile Largest Pocket(cm) 15.05 56 4.38 Comment: A >2 x 2 cm pocket of fluid is noted. BIOMETRY: BPD: 90.8 mm G.Age: 36w 6d 60 % HC: 328.5 mm G.Age: 37w 2d 31 % AC: 328.7 mm G.Age: 36w 5d 58 % FL: 67.8 mm G.Age: 34w 6d 6 % CI: 76.67 % 70 - 86 FL/HC: 20.6 % 20.8 - 22.6 HC/AC: 1.00 0.92 - 1.05 FL/BPD: 74.7 % 71 - 87 FL/AC: 20.6 % 20 - 24 Est. FW: 2918 gm 6 lb 7 oz 39 % GESTATIONAL AGE: U/S Today: 36w 3d MIA: 10/13/24 Best: 37w 0d Det. By: Early Ultrasound MIA: 10/09/24 STANDARD ANATOMY: Cranium: Normal appearance Stomach: Normal appearance Kidneys: Normal appearance Bladder: Normal appearance DOPPLER - VESSELS: Umbilical Artery S/D %tile 2.3 47 COMMENTS: Ms. Mc is being seen for an assessment of growth due to size less than dates. - Patient was dated by an ultrasound at 11 weeks and 17 weeks (outside scans). - Her medical history is positive for anemia. She is a silent carrier for alpha-thalassemia. - She had cell free DNA screening performed. Results were low-risk for all conditions assessed. Ultrasound findings: Today the estimated weight is 2918g grams, at the 39th percentile. The amniotic fluid index measures 15cm, within the normal range for the gestational age. Umbilical Dopplers were within normal limits. - Plan No additional ultrasounds have been scheduled. Follow up as clinically indicated. Kassidy Dixon MD Electronically Signed Final Report 09/18/2024 05:14 pm Assessment/Plan Principal Problem: Normal labor Date Noted: 10/07/2024 Active Problems: Anemia affecting in third trimester ----Hb 10.1 today, cont Ferrous Sulfate 325 mg po daily GBS (group B Streptococcus carrier), +RV culture, currently Date Noted: 09/18/2024 Overview: IP prophylaxis on going 24 yo @ 39w5d GBS positive in labor after presenting with SROM. FWBR cat 1 and VSS wnl. -cont expected management -cont EFM/Ector as per protocol -cont pain management prn -OK for oxytocin as per protocol if clinically indicated I have reviewed her chart and she is appropriate for independent CNM care, I am available for consultation and intervention as needed. Vince Mcgregor MD 10/07/2024 - 39w5d - Ladi Serna CNM S: got some relief with Stadol, still feeling sleepy and declines any other pain mgmt at this time. Reports loss of clear fluid since 0600 O: VSS Ector: 3 ctx/10 mins FHR 140, mod variability, +accels, no decels VE 5/100/-1 A: making progress FHR cat 1 P: continue expectant mgmt for now Progress Notes - Routine Pre rodrigo - 10/04/2024 - GA:39w2d 10/04/2024 - 39w2d - Miryam Myers CNM S: 24yo G1PO IUP@ 39.2wks for nst d/t fgr O: Ob nst: intrauterine growth retardation baseline: 120 Variability: moderate Accels: 2 in 20mins up to 40mins Decels: Absent Ctx: none Findings: reactive A: 24yo G1PO IUP@ 39.2wks for nst d/t fgr P: f/u routinely 2. Nst nv with u/s to schedule for growth and dopplers Progress Notes - Routine Pre - 09/27/2024 - GA:38w2d 09/27/2024 - 38w2d - Miryam Myers CNM Subjective Chief Complaint Patient presents with Routine Visit Farrukh Mc is a 24 y.o. at 38w2d with a working estimated date of delivery of Estimated Date of Delivery: 10/09/24 by Last Menstrual Period who presents for a routine visit. She denies vaginal bleeding or leakage of fluid, denies uc. reports FM Objective Physical Exam Vitals BP: 105/67 Weight: 61.3 kg (135 lb 3.2 oz) Fundal Height (cm): 37 cm Non-Stress Test A Reason for Non-Stress Test A: Intrauterine growth restriction Variability in Waveform for Non-Stress Test A: Moderate Decelerations in Non-Stress Test A: None Accelerations in Non-Stress Test A: Yes Acoustic Stimulator for Non-Stress Test A: No Baseline Heart Rate for Non-Stress Test A: 130 BPM Uterine Irritability for Non-Stress Test A: No Contractions in Non-Stress Test A: Not present Ob check list: Tdap due: given Flu vaccine due: given If glucose completed: neg result Gbs: pos Problem list reviewed. Assessment/Plan Supervision of high risk in third trimester (Primary) 38 weeks gestation of growth restriction antepartum - nonstress test F/u routinely in 1wk Progress Notes - Routine Pre - 09/14/2024 - GA:36w3d 09/14/2024 - 36w3d - Ladi Serna CNM OB Visit: Vitals BP: 113/68 Weight: 60.3 kg Assessment Heart Rate: 130 Fundal Height (cm): 34 cm Movement: Present Presentation: Cephalic 24 y.o. old female at 36w3d. Doing well. Appropriate FM. No LOF/VB/cramping. Her only new concern is has been feelign nauseous and vomiting since Wednesday, denies fever or diarrhea, no one else in her house is ill, able to drink apple juice and eat crackers at this visit, rx for Zofran sent and advised to call if unable to keep food or fluids down for 24 hours. Advised of importance of keeping MFM appt on 09/18 and Heme appt on 09/21, pt states she will go. Otherwise healthy . Her BP is reviewed and is Normal. Tdap was offered and not indicated at today's visit. This patient has received Tdap during this . This patient does not require a urine drug screen. This patient's VTE risk status is low. Signs and symptoms of labor reviewed including reasons to call triage. Problem List reviewed and updated. RTO 1 week NST for FGR Baseline: 130 Variability: moderate Accels: 2 in 20 minutes Decels: None Contractions: Irregular Interpretation: Reactive Plan to repeat in one week Ladi Cohen CNM on 09/14/2024 at 12:34 PM EDT Progress Notes - Routine Pre rodrigo - 09/07/2024 - GA:35w3d 09/07/2024 - 35w3d - Ladi Serna CNM NST for FGR Baseline: 130 Variability: moderate Accels: 2 in 20 minutes Decels: None Contractions: None Interpretation: Reactive Plan: repeat in one week Progress Notes - Routine Pre rodrigo - 09/01/2024 - GA:34w4d 09/01/2024 - 34w4d - Ladi Serna CNM OB Visit: Vitals BP: 119/70 Weight: 61.2 kg (135 lb) Assessment Heart Rate: 135 Fundal Height (cm): 33 cm Movement: Present Presentation: Cephalic 24 y.o. old female at 34w4d. Doing well. Appropriate FM. No LOF/VB/cramping. Her only new concern is some vaginal irritation and itching. Spec exam +thick white discharge, wet prep +yeast, rx for Terazol 3 sent to pharmacy, reviewed instructions on use. Discussed dx of FGR and need for weekly NSTs as well as importance of monitoring FM and calling if any DFM. Also reviewed importance of going to heme appt on 09/21, how to get there and need to bring ID, insurance cards, and forms thaat will be sent to her. Otherwise healthy . Her BP is reviewed and is Normal. This patient does not require a urine drug screen. Signs and symptoms of labor reviewed including reasons to call triage. Problem List reviewed and updated. RTO 1 week for NST NST for FGRwet Baseline: 135 Variability: moderate Accels: 2 in 20 minutes Decels: None Contractions: None Interpretation: Reactive Ladi Cohen CNM on 09/01/2024 at 2:48 PM EDT Progress Notes - Routine Pre - 08/18/2024 - GA:32w4d 08/18/2024 - 32 - Ladi Serna CNM OB Visit: Vitals BP: 135/72 Weight: 59.9 kg (132 lb) Assessment Heart Rate: 155 Fundal Height (cm): 32 cm Movement: Present Presentation: Cephalic 24 y.o. old female at 32w4d. Doing well. Appropriate FM. No LOF/VB/cramping. Her only new concern is having difficulty falling asleep, reviewed comfort measures and will try Unisom prn, now has insurance, agrees to TDaP today. Discussed importance of hematology consult and growth scan, pt verbalized understanding, orders placed. Seeing SW today to do SIOH screening. Otherwise healthy . Her BP is reviewed and is Normal. Signs and symptoms of labor reviewed including reasons to call triage. The patient does not require anesthesia consult. Problem List reviewed and updated. RTO 2 weeks. Ladi Cohen CNM on 08/18/2024 at 2:43 PM EDT Progress Notes - Routine Pre - 07/21/2024 - GA:28w4d 07/21/2024 - - Ladi Serna CNM OB Visit: Vitals BP: 121/64 Weight: 59 kg (130 lb) Assessment Heart Rate: 140 Fundal Height (cm): 28 cm Movement: Present Presentation: Cephalic 24 y.o. old female at 28w4d. Doing well. Appropriate FM. No LOF/VB/cramping. Her only new concern is has lost health insurance, not taking Fe as rx ran out. Also notes some tooth pain and bleeding when she brushes her teeth. Otherwise healthy . Her BP is reviewed and is Normal. Tdap was deferred until pt has insurance. This patient has not received Tdap during this . This patient has not received syphilis testing during this - will do 28 week labs when insurance restored. This patient does not require a urine drug screen. Desires Tubal: No . Signs and symptoms of labor reviewed including reasons to call triage. Problem List reviewed and updated. RTO 4 weeks. Seeing social service liaison today to get insurance. [place] Depression Scale: In the Past 7 Days I have been able to laugh and see the funny side of things.: Not quite so much now I have looked forward with enjoyment to things.: As much as I ever did I have blamed myself unnecessarily when things went wrong.: Yes, some of the time I have been anxious or worried for no good reason.: No, not at all I have felt scared or panicky for no good reason.: No, not at all Things have been getting on top of me.: Yes, sometimes I haven't been coping as well as usual I have been so unhappy that I have had difficulty sleeping.: Yes, sometimes I have felt sad or miserable.: No, not at all I have been so unhappy that I have been crying.: Only occasionally The thought of harming myself has occurred to me.: Never [place] Depression Scale Total: 8 [place] SCREENING CHARGE (Clinic Only): [id number] Ladi Cohen CNM on 07/21/2024 at 3:36 PM EDT 07/21/2024 - 28w4d - Sadia Shoemaker MA [place] Depression Scale: In the Past 7 Days I have been able to laugh and see the funny side of things.: Not quite so much now I have looked forward with enjoyment to things.: As much as I ever did I have blamed myself unnecessarily when things went wrong.: Yes, some of the time I have been anxious or worried for no good reason.: No, not at all I have felt scared or panicky for no good reason.: No, not at all Things have been getting on top of me.: Yes, sometimes I haven't been coping as well as usual I have been so unhappy that I have had difficulty sleeping.: Yes, sometimes I have felt sad or miserable.: No, not at all I have been so unhappy that I have been crying.: Only occasionally The thought of harming myself has occurred to me.: Never [place] Depression Scale Total: 8 [place] SCREENING CHARGE (Clinic Only): [id number] Progress Notes - Routine Pre rodrigo - 06/21/2024 - GA:24w2d 06/21/2024 - 24w - Ladi Serna CNM OB Visit: Vitals BP: 123/74 Weight: 57.3 kg (126 lb 6.4 oz) Assessment Heart Rate: 140 Fundal Height (cm): 24 cm Movement: Present 24 y.o. old female at 24w2d. Doing well. Pos FM. No LOF/VB/cramping. Her only new concern is she missed FAS due to not feeling well, rescheduled today. States she never got a message about iron being ready at pharmacy, rx resent, pt advised to call if rx is not ready by tomorrow. Otherwise healthy . Her BP is reviewed and is Normal. She does not require a urine drug screen. Signs and symptoms of labor reviewed including reasons to call triage. Problem List reviewed and updated. RTO 4 weeks. Ladi Cohen CNM on 06/21/2024 at 3:44 PM EDT Progress Notes - Initial Pre rodrigo - 05/24/2024 - GA:20w2d 05/24/2024 - 20w2d - Angle Taylor MA INFLUENZA VACCINE The patient acknowledges that they will be receiving the Influenza (Flu) vaccine today: YES Flu vaccine formulation is: self Immunization tab reviewed: Patient acknowledges they have NOT received a flu vaccine for the [id number] YES Denies history of Guillain-[place] Syndrome (severe muscle weakness). YES Acknowledges reviewing the VIS Seasonal Flu dated 10-25-2020 (copy made available). YES Patient Denies moderate or severe illness or fever of >100 degrees F. YES Agrees to wait in the office/car for 20 minutes after receiving the influenza injection. YES No restriction for Influenza vaccine administered IM See Imm/Inj tab. Electronically signed by: Tyesha Smith 01/24/2024 11:50 AM 05/24/2024 - 2d - Ladi Serna CNM OB 12 week appt IP: Seen with assistance of Brissa Mcdowell stock holder. S: Farrukh is a 24 y.o. year old here for IP. Her is planned. She and the father of the baby are happy. No LMP recorded. Patient is . She is uncertain of her LMP with regular cycles. is currently dated by 1st trimester ultrasound only. She complains of no concerns at present . She denies vaginal bleeding or cramping. Flu vaccine: accepted She has not started taking iron. Discussed that she has concerning anemia and it is very important to start taking iron daily. O: Blood pressure 112/68, pulse 74, height 1.54 m (60.63 ), weight 57.2 kg (126 lb). See OB physical and labs. Vitals BP: 112/68 Weight: 57.2 kg (126 lb) Assessment Heart Rate: 140 Fundal Height (cm): 20 cm Movement: Present Dilation/Effacement/Station Dilation: Closed Effacement (%): 0 No results found for: ABORH Lab Results Component Value Date RH Positive 05/19/2024 A: at 20w2d weeks gestation. 1. Encounter for supervision of normal first in second trimester 2. Anemia affecting in second trimester 3. Need for prophylactic vaccination and inoculation against influenza P: Pap obtained today. Genprobe obtained today. Oriented to THoNE MG and anticipated course. Discussed collaborative practice and [facility] delivery. Reviewed healthy eating and normal weight gain in . Encouraged patient to push PO fluids. Counseled about warning signs of the first trimester and how to contact information strategist provider. Discussed the benefits of breast feeding and strongly encouraged to consider this. RTO 4 weeks. The patient does not require anesthesia consult. This patient's VTE risk status is low. [place] Depression Scale: In the Past 7 Days I have been able to laugh and see the funny side of things.: As much as I always could I have looked forward with enjoyment to things.: As much as I ever did I have blamed myself unnecessarily when things went wrong.: No, never I have been anxious or worried for no good reason.: Yes, sometimes I have felt scared or panicky for no good reason.: No, not at all Things have been getting on top of me.: No, I have been coping as well as ever I have been so unhappy that I have had difficulty sleeping.: Not at all I have felt sad or miserable.: No, not at all I have been so unhappy that I have been crying.: No, never The thought of harming myself has occurred to me.: Never [place] Depression Scale Total: 2 Ladi Cohen CNM on 05/24/2024 at 3:36 PM EST Progress Notes - Clinical [facility] pport - 05/23/2024 - GA:20w1d 05/23/2024 - 20w1d - Joyce Torres RN C/o burning with urination-urine culture ordered. 05/23/2024 - 20w1d - Joyce Torres RN OB w/u completed with interpretor#[id number] Mc is a 24 y.o. old female at 20w1d. This is [place]. The patient feels happy about the . The FOB is supportive. Patient's last menstrual period was No LMP recorded. Patient is . (exact date)., which would make her currently 20w1d with an Estimated Date of Delivery: 10/09/24. She is uncertain of her date. An ultrasound has already been performed on 04/04/24, MIA changed to 10/09/24 as dates do not agree with LMP Patient has significant history of: No previous history of OB Past Medical History: Have you had or do you currently have: Diabetes? No Hypertension? No Heart disease, Mitral valve Prolapse, or Rheumatic fever? No An Autoimmune disease such as Lupus or Rheumatoid Arthritis? No Epilepsy, Seizures, or Spells? No Migraine Headaches? No Stroke or loss of function or sensation? No Additional Questions: Have you ever been treated for anxiety and/or depression? No Are you having problems with crying spells or loss of self-esteem? No Have you ever required psychiatric care? No Have you ever had hepatitis, liver disease or jaundice? No Have you ever been treated for blood clots in your veins, deep venous thrombosis, inflammation in the veins, thrombosis, phlebitis, pulmonary embolism or varicosities? No Have you had excessive bleeding after surgery or dental work? No Do you bleed more than other women after a cut or scratch? No Do you have a history of anemia? Yes Have you ever had Thyroid problems or taken Thyroid medications? No Do you have any other Endocrine Problems (ie. PCOS)? No Have you ever been in a major accident or suffered serious trauma? No Within the last year, has anyone hit, slapped, kicked or otherwise hurt you? No In the last year, has anyone forced you to have sex when you didn't want to? No Do you feel safe at home? Yes Have you ever received a blood transfusion? No Would you refuse a blood transfusion if a doctor judged to be medically necessary? No Would you rather than receive a blood transfusion? No If you answered yes to the above questions, is this for judaism reasons? No Do you know what your blood type is or if you are Rh Negative? No Have you ever had abnormal antibodies in your blood? No Have you ever had asthma? No Have you every had Tuberculosis? No Have you ever had any breast problems? No Have you ever breast fed? No Have you ever had any gynecological surgical procedures such as cervical conization, LEEP procedure, Laser treatment, cryosurgery of the cervix or dilation and curettage, etc? No Have you had any other surgical procedures? No Have you ever been hospitalized overnight for a non-surgical reason excluding normal delivery? No Have you ever had anesthesia complications? No Have you ever had an abnormal pap smear? No Do you have a history of abnormalties of the uterus? No Did your mother take MARCY or any other hormones when she was with you? No Did it take more than one year to become ? No Have you ever been evaluated or treated for infertility? No Is there a history of medical problems in your family which you feel might adversely affect your health or ? No Do you have any other problems we have not asked you about which you feel may be important for us to know for this ? No Do you currently have any of the following symptoms since your last menstrual period: Abdominal pain, blood in the stool or urine, chest pain, shortness of breath, coughing or vomiting up blood, your heart racing or skipping beats, nausea and/or vomiting, pain on urination, or vaginal discharge or vaginal bleeding? Yes- nausea/vomiting, fatigue OB Infection History: Do you object to being tested for Hepatitis B? No Do you object to being tested for HIV? No Do you feel that you are at high risk for coming contact with the AIDS virus? No Have you ever been treated for tuberculosis? No Have you ever received the BCG vaccine? No Have you ever had a positive skin test for Tuberculosis? No Do you live with someone who has Tuberculosis? No Have you ever been exposed to Tuberculosis? No Do you have Genital Herpes? No Does your partner have Genital Herpes? No Have you had a rash or viral illness since your last period? No Have you ever had Gonorrhea, Chlamydia, Syphilis, Venereal Warts, Trichomoniasis, Pelvic Inflammatory Disease (PID) or any other sexually transmitted disease? No Do you know if you are a Group B Streptococcus Carrier? No Did you have the Chicken Pox/Varicella? No Were you vaccinated against Chicken Pox/Varicella? No Have you had any other infectious diseases? No Farrukh Mc has been instructed on the following: random urine drug screening policy and an initial urine drug screen has been ordered. Farrukh Mc has also been informed of the it consultant provider recommendation for first trimester nuchal lucency testing to be performed during her . Farrukh Mc has also been made aware of the time sensitive nature for this testing to be completed. . The patient now has a gestational age of 20w1d. The patient is beyond 14 weeks gestation and is too late for the first trimester screening. Ethnicity Based Genetic Testing has been reviewed and the [employer] information sheet has been provided to the patient in their After Visit Summary. The patient was also advised that genetic testing may not be covered by all insurances. The patients states that they understand this information. The patient states that she has not had the genetic screening for Horizon 14 done in the past during a previous .. The patient has agreed that she does want genetic testing for Horizon 14 and Panorama The following Labs have been ordered: Panorama with gender and Horizon 14 panel She is aware that her insurance may or may not cover Panorama and/or Horizon 14 test and discussed faustin only nielsen for test(s) - info given today in her after visit summary . She would like to proceed with testing. Electronically signed by: Joyce Blanton RN 05/23/24 3:11 PM EST Last Filed Vital Signs Vital Sign Reading Time Taken Comments Blood Pressure 118/70 12/06/2024 2:42 PM EDT Pulse 77 11/22/2024 10:35 AM EDT Temperature 36.7 C (98 F) 10/11/2024 5:05 PM EDT Respiratory Rate 14 11/22/2024 10:35 AM EDT Oxygen Saturation 99% 10/11/2024 5:05 PM EDT Inhaled Oxygen Concentration - - Weight 56.4 kg (124 lb 6.4 oz) 11/22/2024 10:35 AM EDT Height 150 cm (4' 11.06 ) 11/22/2024 10:35 AM ED T Body Mass Index 25.08 11/22/2024 10:35 AM EDT Plan of Treatment Upcoming Encounters Date Type Department Care Team (Late st Contact Info) Description 02/28/2025 3:00 PM EST Clinical Support Obstetrics and Gynecology [address] [id number] Health Maintenance Due Date Last Done Comments HPV Vaccines (1 - 3-dose series) 2016 Meningococcal B Vaccine (1 of 2 - Standard) 2017 Hepatitis B Vaccines (1 of 3 - 19+ 3-dose series) 2020 Depression Screening 03/22/2024 Cholesterol Screening (Lipid Panel) 03/25/2024 COVID-19 Vaccine ( - season) 2024 Influenza Vaccine (#1) 2024 05/24/2024 Gonorrhea/Chlamydia Screening 05/24/2025 05/24/2024 Social Influencers of Health Screening 08/18/2025 08/18/2024 Hypertension/CHF/CAD Annual BMP Blood Test 10/10/2025 10/10/2024, 10/09/2024, 05/06/2024, Additional history exists Cervical Cancer Screening: Pap Smear 05/25/2027 05/24/2024 DTaP,Tdap,and Td Vaccines (2 - Td or Tdap) 08/18/2034 08/18/2024 RSV Immunization Adult Patients (1 - 1-dose 75+ series) 2076 HIV Screening Completed 05/19/2024 Hepatitis C Screening Completed 05/19/2024 HIB Vaccines Aged Out No longer eligi ble based on patient's age to complete this topic Hepatitis A Vaccines Aged Out No long er eligible based on patient's age to complete this topic IPV Vaccines Aged Out No longer eligi ble based on patient's age to complete this topic MMR Vaccines Aged Out No longer eligi ble based on patient's age to complete this topic Meningococcal ACWY Vaccine Aged Out N o longer eligible based on patient's age to complete this topic Pneumococcal Vaccine: Pediatrics (0 to 5 Years) and At-Risk Patients (6 to 49 Years) Aged Out No longer eligible based on patient's age to complete this topic RSV Immunization Patients Under 20 months Aged Out No longer eligible based on patient's age to complete this topic Varicella Vaccines Aged Out No longer eligible based on patient's age to complete this topic Interventions Community Resource Recommendations Community Resource Services Recommended Domains Addressed Status Status Reason/Outcome Date/Time [facility] - Women, Infants, and Children (WIC) Nutrition Education Food Access & Nutrition 09/01/2024 3:16 PM EDT [facility] Financial Assistance Financial Risk 09/01/2024 3:16 PM EDT [employer], [facility]. - Women, Infants, & Children (WIC) Nutri Navigating the System, Nutrition Education Food Access & Nutrition, Financial Risk 09/01/2024 3:16 PM EDT [employer] ([employer]), [facility]. - Women, Infants, & Children (WIC) Nutri Navigating the System, Nutrition Education Food Access & Nutrition, Financial Risk 09/01/2024 3:16 PM EDT [employer] ([employer]), [facility]. - Women, Infants, & Children (WIC) Nutri Navigating the System, Nutrition Education Food Access & Nutrition, Financial Risk 09/01/2024 3:16 PM EDT [employer] [place] ([employer]), [facility]. - Women, Infants, & Children (WIC) Nutri Navigating the System, Nutrition Education Food Access & Nutrition, Financial Risk 09/01/2024 3:16 PM EDT [facility] - Section 8 Housing Choice Vouchers Government Benefits Financial Risk 09/01/2024 3:16 PM EDT [facility] - Women, Infants, and Children (WIC) Navigating the System, Nutrition Education Food Access & Nutrition, Financial Risk 09/01/2024 3:16 PM EDT [facility] - Women, Infants, and Children (WIC) Navigating the System, Nutrition Education Food Access & Nutrition, Financial Risk 09/01/2024 3:16 PM EDT [facility] - Women, Infants, and Children (WIC) Navigating the System, Nutrition Education Food Access & Nutrition, Financial Risk 09/01/2024 3:16 PM EDT from Last 12 Months Procedures Procedure Name Priority Date/Time Associated Diagnosis Comments POC , URINE DIAGNOSTIC Routine 12/06/2024 2:43 PM EDT examination or test, negative result EXTERNAL ULTRASOUND REPORT 10/13/2024 CBC WITH AUTO DIFFERENTIAL Routine 10/10/2024 8:28 AM EDT COMPREHENSIVE METABOLIC PANEL Routine 10/10/2024 8:28 AM EDT CBC AND DIFFERENTIAL Routine 10/10/2024 8:28 AM EDT PROTEIN AND CREATININE WITH RATIO, URINE STAT 10/09/2024 5:18 PM EDT CBC WITH AUTO DIFFERENTIAL STAT 10/09/2024 4:36 PM EDT CBC AND DIFFERENTIAL STAT 10/09/2024 4:36 PM EDT COMPREHENSIVE METABOLIC PANEL STAT 10/09/2024 4:36 PM EDT TH AN NERVE BLK LUMBAR EPIDURAL (NO CHARGE) Routine 10/07/2024 9:45 AM EDT TREPONEMA PALLIDUM ANTIBODY WITH REFLEX TO RPR AND PARTICLE AGGLUTINATION STAT 10/07/2024 3:45 AM EDT TYPE AND SCREEN STAT 10/07/2024 3:45 AM EDT COMPLETE BLOOD COUNT STAT 10/07/2024 3:45 AM EDT NONSTRESS TEST Routine 10/04/2024 2:52 PM EDT growth restriction antepartum CBC WITH AUTO DIFFERENTIAL STAT 09/21/2024 11:59 AM EDT Anemia affecting in third trimester Third trimester TYPE AND SCREEN STAT 09/21/2024 11:59 AM EDT Anemia affecting in third trimester Third trimester CBC AND DIFFERENTIAL STAT 09/21/2024 11:59 AM EDT Anemia affecting in third trimester Third trimester IRON AND TIBC Routine 09/21/2024 11:59 AM EDT Anemia affecting in third trimester Third trimester FERRITIN Routine 09/21/2024 11:59 AM EDT Anemia affecting in third trimester Third trimester PAP SMEAR Routine 05/24/2024 3:47 PM EST Encounter for supervision of normal first in second trimester CHLAMYDIA TRACHOMATIS AND NEISSERIA GONORRHOEAE BY TMA, THINPREP Routine 05/24/2024 3:47 PM EST Encounter for supervision of normal first in second trimester HEPATITIS C ANTIBODY Routine 05/19/2024 10:15 AM EST test positive HIV 1, 2 ANTIBODY, P24 ANTIGEN WITH REFLEX TO DIFFERENTIATION Routine 05/19/2024 10:15 AM EST test positive from Last 3 Months or Most Recently Relevant to Health Maintenance Results * POC , urine manually resulted (12/06/2024 2:43 PM EDT) Pathologist [facility] HCG, Ur POC Negative Negative POC hCG Int QC Pass? Yes Yes Urine Urine specimen obtained by clean catch procedure / Unknown 12/06/2024 2:43 PM EDT us Miryam Myers CNM POINT OF CARE TEST ENTER/EDIT ORDERABLES Final Result * External Ultrasound Report (10/13/2024) Anatomical Region Laterality Modality Ultrasound us Provider Onbase MD RANDALL US PROCEDURES Final Resul t * (ABNORMAL) CBC auto differential (10/10/2024 8:28 AM EDT) Only the most recent of3 resultswithin the time period is included. Pathologist [facility] WBC 9.4 4.8 - 10.8 K/mcL LAB HEMETOLOGY METHOD 10/10/2024 8:38 AM EDT [facility] RBC 3.50(L) 3.80 - 4.80 M/mcL LAB HEMETOLOGY METHOD 10/10/2024 8:38 AM EDT [facility] Hemoglobin 9.7(L) 11.5 - 16.0 g/dL LAB HEMETOLOGY METHOD 10/10/2024 8:38 AM EDT [facility] Hematocrit 30.2(L) 35.0 - 47.0 % LAB HEMETOLOGY METHOD 10/10/2024 8:38 AM EDT [facility] MCV 86.5 79.0 - 98.0 FL LAB HEMETOLOGY METHOD 10/10/2024 8:38 AM [facility] MCH 27.8 27.0 - 32.0 pcg LAB HEMETOLOGY METHOD 10/10/2024 [facility] MCHC 32.1 32.0 - 37.0 g/dL LAB HEMETOLOGY METHOD 10/10/2024 8:38 AM [facility] RDW 13.3 11.0 - 15.0 % LAB HEMETOLOGY METHOD 10/10/2024 8:38 AM [facility] Platelets 256 130 - 400 K/mcL LAB HEMETOLOGY METHOD 10/10/2024 8:38 AM [facility] MPV 10.2 7.0 - 11.0 FL LAB HEMETOLOGY METHOD 10/10/2024 8:38 AM [facility] NRBC 0.0 <1.0 % LAB HEMETOLOGY METHOD 10/10/2024 8:38 AM [facility] NRBC Absolute 0.00 <0.10 K/mcL LAB HEMETOLOGY METHOD 10/10/2024 8:38 AM [facility] Neutrophils Relative 62.5 % LAB HEMETOLOGY METHOD 10/10/2024 8:38 AM [facility] Lymphocytes Relative 23.8 % LAB HEMETOLOGY METHOD 10/10/2024 8:38 AM [facility] Monocytes Relative 8.6 % LAB HEMETOLOGY METHOD 10/10/2024 8:38 AM [facility] Eosinophils Relative 0.7 % LAB HEMETOLOGY METHOD 10/10/2024 8:38 AM EDT [facility] Basophils Relative 0.4 % LAB HEMETOLOGY METHOD 10/10/2024 8:38 AM EDT [facility] Immature Granulocytes Relative 4.0 % LAB HEMETOLOGY METHOD 10/10/2024 8:38 AM EDT [facility] Neutrophils Absolute 5.87 1.50 - 7.00 K/mcL LAB HEMETOLOGY METHOD 10/10/2024 8:38 AM EDT [facility] Lymphocytes Absolute 2.24 1.00 - 5.00 K/mcL LAB HEMETOLOGY METHOD 10/10/2024 8:38 AM EDT [facility] Monocytes Absolute 0.81 0.20 - 1.00 K/mcL LAB HEMETOLOGY METHOD 10/10/2024 8:38 AM EDT [facility] Eosinophils Absolute 0.07 0.00 - 0.50 K/mcL LAB HEMETOLOGY METHOD 10/10/2024 8:38 AM EDT [facility] Basophils Absolute 0.04 0.00 - 0.20 K/mcL LAB HEMETOLOGY METHOD 10/10/2024 8:38 AM EDT [facility] Immature Granulocytes Absolute 0.38(H) 0.00 - 0.03 K/mcL LAB HEMETOLOGY METHOD 10/10/2024 8:38 AM EDT [facility] Blood Venous blood specimen / Unknown Venipuncture / Unknown 10/10/2024 8:28 AM EDT 10/10/2024 8:34 AM EDT us Carmella Rousseau MD LAB BLOO D ORDERABLES Final Result [facility] [address] [place] [address], * (ABNORMAL) Comprehensive metabolic panel (10/10/2024 8:28 AM EDT) Only the most recent of2 resultswithin the time period is included. Sodium 140 133 - 145 mmol/L LAB CHEMISTRY METHOD 10/10/2024 9:05 AM [facility] Potassium 3.6 3.5 - 5.5 mmol/L LAB CHEMISTRY METHOD 10/10/2024 9:05 AM [facility] Chloride 109 96 - 110 mmol/L LAB CHEMISTRY METHOD 10/10/2024 9:05 AM [facility] CO2 25 21 - 32 mmol/L LAB CHEMISTRY METHOD 10/10/2024 9:05 AM [facility] Anion Gap 6 3 - 11 LAB CHEMISTRY METHOD 10/10/2024 9:05 AM [facility] Glucose 77 70 - 100 mg/dL LAB CHEMISTRY METHOD 10/10/2024 9:05 AM [facility] BUN 6 5 - 25 mg/dL LAB CHEMISTRY METHOD 10/10/2024 9:05 AM [facility] Creatinine 0.54 0.50 - 1.10 mg/dL LAB CHEMISTRY METHOD 10/10/2024 9:05 AM [facility] eGFR 133 >=60 mL/min/1. 73m2 LAB CHEMISTRY METHOD 10/10/2024 9:05 AM [facility] Comment:Calculation based on the Chronic Kidney Disease Epidemiology Collaboration (CKD-EPI) equation refit without adjustment for race. BUN/Creatinine Ratio 11.1 LAB CHEMISTRY METHOD 10/10/2024 9:05 AM [facility] Calcium 9.1 8.5 - 10.5 mg/dL LAB CHEMISTRY METHOD 10/10/2024 9:05 AM [facility] AST (SGOT) 18 10 - 42 unit/L LAB CHEMISTRY METHOD 10/10/2024 9:05 AM [facility] ALT (SGPT) 13 10 - 60 unit/L LAB CHEMISTRY METHOD 10/10/2024 9:05 AM EDT [facility] Alkaline Phosphatase 115 42 - 121 unit/L LAB CHEMISTRY METHOD 10/10/2024 9:05 AM EDT [facility] Total Protein 6.3 6.0 - 8.0 g/dL LAB CHEMISTRY METHOD 10/10/2024 9:05 AM EDT [facility] Albumin 2.3(L) 3.2 - 5.0 g/dL LAB CHEMISTRY METHOD 10/10/2024 9:05 AM EDT [facility] Total Bilirubin <0.1 0.0 - 1.4 mg/dL LAB CHEMISTRY METHOD 10/10/2024 9:05 AM EDT [facility] Blood Venous blood specimen / Unknown Venipuncture / Unknown 10/10/2024 8:28 AM EDT 10/10/2024 8:34 AM EDT us Carmella Rousseau MD LAB BLOO D ORDERABLES Final Result [facility] [address] [place] [address], * Protein and creatinine ratio, urine (10/09/2024 5:18 PM EDT) Protein, Urine 13 mg/dL LAB CHEMISTRY METHOD 10/09/2024 7:41 PM EDT [facility] Prot/Creat, Ur 0.16 <=0.20 mg/mg creat LAB CHEMISTRY METHOD 10/09/2024 7:41 PM EDT [facility] Creatinine, Urine 81.0 mg/dL LAB CHEMISTRY METHOD 10/09/2024 7:41 PM EDT [facility] Urine Urine specimen from urinary conduit / Unknown Non-blood Collection / Unknown 10/09/2024 5:18 PM EDT 10/09/2024 5:23 PM EDT us Carmella Rousseau MD LAB URIN E ORDERABLES Final Result [facility] [address] [facility] [place] [address], * TH AN NERVE BLK LUMBAR EPIDURAL (NO CHARGE) (10/07/2024 9:45 AM EDT) Prince Araya DO - 10/07/2024 9:45 AM EDT Prince Calvo DO 10/07/2024 5:52 PM Epidural Block Patient location during procedure: OB Start time: 10/07/2024 9:45 AM End time: 10/07/2024 10:15 AM Reason for block: labor epidural Staffing Performed: resident/SOCIAL WORKER CLINICAL/CAA Anesthesiologist: Prince Calvo DO Resident/SOCIAL WORKER CLINICAL: Rashaun Jimenez CRNA Performed by: Prince Calvo DO Authorized by: Prince Calvo DO Preanesthetic Checklist Completed: patient identified, IV checked, risks and benefits discussed, surgical consent, monitors and equipment checked, pre-op evaluation and timeout performed Epidural Patient Position: sitting Monitoring: heart rate, continuous pulse ox and NIBP Approach: midline Vertebral Space: lumbar Lumbar Location: L3-4 Needle Needle type: Tuohy Needle gauge: 18 G Needle length: 8.5 cm Needle insertion depth: 6 cm Catheter size: 20G. Catheter at skin depth: 11 cm Test dose: negative and lidocaine 1.5% with epinephrine 1-to-200,000 Assessment Sensory level: T10 Events: negative aspiration for heme, no paresthesia on injection and incremental injection every 5 mL Additional Notes Patient consented prior to procedure. Seated with monitors on. Back was prepped and draped and procedure took place under sterile conditions. Skin wheal placed with Lidocaine 1% (Plain) infiltration. 18G Touhy needle placed. SRUTHI with saline at 6 cm. Catheter thread easily and left at 11 cm. NO Heme on aspiration ; NO CSF on aspiration; NO Paresthesias from either needle or catheter. Patient was bolused with 6 ml of 0.1% bupivacaine with 2 mcg/ml fentanyl off the epidural bag dilute down with 7 ml of NS. Patient with improved comfort with contractions bilaterally at the conclusion of this encounter. Procedure was tolerated well. Placed in BO position subsequent to procedure completion. Prince Calvo DO ANESTHESIA ORDERABLES Edited Re sult - Final * Treponema pallidum antibody with reflex to RPR and particle agglutination (10/07/2024 3:45 AM EDT) [facility] T. Pallidum Antibodies Negative Negative LAB CHEMISTRY METHOD 10/07/2024 4:36 AM EDT [facility] Blood Venous blood specimen / Unknown Venipuncture / Unknown 10/07/2024 3:45 AM EDT 10/07/2024 3:51 AM EDT Ladi BROWN LAB BLOOD ORDERABLES Final Result [facility] [address] [place] [address], [place] [phone] * (ABNORMAL) Complete blood count (10/07/2024 3:45 AM EDT) [facility] WBC 11.6(H) 4.8 - 10.8 K/mcL LAB HEMETOLOGY METHOD 10/07/2024 3:57 AM EDT [facility] RBC 3.70(L) 3.80 - 4.80 M/mcL LAB HEMETOLOGY METHOD 10/07/2024 3:57 AM EDT [facility] Hemoglobin 10.1(L) 11.5 - 16.0 g/dL LAB HEMETOLOGY METHOD 10/07/2024 3:57 AM EDT [facility] Hematocrit 31.7(L) 35.0 - 47.0 % LAB HEMETOLOGY METHOD 10/07/2024 3:57 AM EDT [facility] MCV 86.4 79.0 - 98.0 FL LAB HEMETOLOGY METHOD 10/07/2024 3:57 AM EDT [facility] MCH 27.5 27.0 - 32.0 pcg LAB HEMETOLOGY METHOD 10/07/2024 3:57 AM EDT [facility] MCHC 31.9(L) 32.0 - 37.0 g/dL LAB HEMETOLOGY METHOD 10/07/2024 3:57 AM EDT [facility] RDW 13.6 11.0 - 15.0 % LAB HEMETOLOGY METHOD 10/07/2024 3:57 AM EDT [facility] Platelets 210 130 - 400 K/mcL LAB HEMETOLOGY METHOD 10/07/2024 3:57 AM EDT [facility] MPV 10.7 7.0 - 11.0 FL LAB HEMETOLOGY METHOD 10/07/2024 3:57 AM EDT [facility] NRBC 0.0 <1.0 % LAB HEMETOLOGY METHOD 10/07/2024 3:57 AM EDT [facility] NRBC Absolute 0.00 <0.10 K/mcL LAB HEMETOLOGY METHOD 10/07/2024 3:57 AM EDT [facility] Blood Venous blood specimen / Unknown Venipuncture / Unknown 10/07/2024 3:45 AM EDT 10/07/2024 3:51 AM EDT Ladi Cohen [facility] BLOOD ORDERABLES Final Result [facility] [address] [place] [address], * Type and screen (10/07/2024 3:45 AM EDT) Only the most recent of2 resultswithin the time period is included. ABO Group O 10/07/2024 5:15 AM EDT [facility] Rh Type Positive 10/07/2024 5:15 AM EDT [facility] Antibody Screen Negative 10/07/2024 5:15 AM EDT [facility] Blood Venous blood specimen / Unknown Venipuncture / Unknown 10/07/2024 3:45 AM EDT 10/07/2024 3:51 AM EDT Ladi Cohen CNM LAB BLOOD BANK TEST ORDERAB LES Final Result Performing Organization Address City/[facility]/ZIP Co de Phone Number [facility] [address] [place] [address], [place] [phone] * nonstress test (10/04/2024 2:52 PM EDT) Miryam Myers CNM IN CLINIC/BEDSIDE ORDERABLES Final Result * (ABNORMAL) Iron and TIBC (09/21/2024 11:59 AM EDT) Iron 64 40 - 150 mcg/dL LAB CHEMISTRY METHOD 09/21/2024 1:14 PM EDT [facility] TIBC 476(H) 250 - 450 mcg/dL LAB CHEMISTRY METHOD 09/21/2024 1:14 PM EDT [facility] Iron Saturation 13(L) 15 - 50 % LAB CHEMISTRY METHOD 09/21/2024 1:14 PM EDT [facility] Blood Venous blood specimen / Unknown Venipuncture / Unknown 09/21/2024 11:59 AM EDT 09/21/2024 12:14 PM EDT Dee PITTMAN LAB BLOOD ORDERABLES Final Re sult [facility] [address] [place] [address], [place] [phone] * Ferritin (09/21/2024 11:59 AM EDT) Ferritin 18 8 - 252 ng/mL LAB CHEMISTRY METHOD 09/21/2024 1:14 PM EDT [facility] Blood Venous blood specimen / Unknown Venipuncture / Unknown 09/21/2024 11:59 AM EDT 09/21/2024 12:14 PM EDT Dee PITTMAN LAB BLOOD ORDERABLES Final Re sult [facility] [address] [place] [address], [place] [phone] * Chlamydia trachomatis and neisseria gonorrhoeae by tma, thinprep (05/24/2024 3:47 PM EST) Pathologist [facility] N. gonorrhoeae, RNA Probe Negative Negative LAB MICROBIOLOGY METHOD 05/25/2024 2:04 PM EST [facility] Chlamydia, RNA Probe Negative Negative LAB MICROBIOLOGY METHOD 05/25/2024 2:04 PM EST [facility] Brushing/Spatula Cervix uteri structure / Unknown 05/24/2024 3:47 PM EST 05/25/2024 6:09 AM EST Ladi BROWN LAB CYTOLOGY ORDERABLES Fin al Result Performing Organization Address City/[facility]/ZIP Co de Phone Number [facility] [address] [place] [address], [place] [phone] * (ABNORMAL) Pap smear (05/24/2024 3:47 PM EST) Pathologist [facility] Interpretation Low grade squamous intraepithelial lesion(A) 05/31/2024 3:15 PM EDT [facility] General Categorization Epithelial cell abnormality, see interpretation 05/31/2024 3:15 PM EDT [facility] Other Findings Shift in tod suggestive of bacterial vaginosis 05/31/2024 3:15 PM EDT [facility] Specimen Adequacy Satisfactory for evaluation, endocervical/crooks sformation zone component present 05/31/2024 3:15 PM EDT [facility] Pap Methodology Liquid Based Pap Test 05/31/2024 3:15 PM EDT [facility] Disclaimer Note: This pap test could not be imaged utilizing the [employer] Imaging System and required a manual review. The Pap test is a screening test which carries an inherent false negative rate. These test results should be correlated with the patient's clinical findings and history. This Pap test was processed using an automated screening system. Technical cytopathology services provided by [facility], at [address] [place] [address] (CLIA # [id number]/Jessenia Figueroa MD, Fund Accountant.) 05/31/2024 3:15 PM EDT [facility] Console Pap Interpretation Reported 05/31/2024 3:15 PM EDT [facility] Brushing/Spatula Cervix uteri structure / Unknown 05/24/2024 3:47 PM EST 05/24/2024 3:47 PM EST Ladi Cohen [facility] CYTOLOGY ORDERABLES Fin al Result Performing Organization Address City/[facility]/ZIP Co de Phone Number [facility] [address] [place] [address], * Hepatitis C antibody (05/19/2024 10:15 AM EST) Hepatitis C Antibody Negative Negative LAB CHEMISTRY METHOD 05/19/2024 12:46 PM EST [facility] Blood Venous blood specimen / Unknown Venipuncture / Unknown 05/19/2024 10:15 AM EST 05/19/2024 10:15 AM EST us Todd Irizarry [facility] BLOOD ORDERABLES Final Res ult [facility] [address] [place] [address], [place] [phone] * HIV 1,2 antibody, p24 antigen with reflex to differentiation (05/19/2024 10:15 AM EST) HIV Combo AB/AG Negative Negative LAB CHEMISTRY METHOD 05/19/2024 12:46 PM EST [facility] Blood Venous blood specimen / Unknown Venipuncture / Unknown 05/19/2024 10:15 AM EST 05/19/2024 10:15 AM EST Narrative [facility] - 05/19/2024 12:46 PM EST This assay is a 4th generation assay allowing for earlier detection of HIV infection by detecting the presence of the HIV-1 p24 antigen as well as the traditional antibodies to HIV type 1 (including group O) and type 2. Use of a 4th generation assay is the current CDC recommendation for HIV screening. Todd Irizarry CNM LAB BLOOD ORDERABLES Final Res ult [facility] [address] [place] [address], [place] [phone] from Last 3 Months or Most Recently Relevant to Health Maintenance Insurance [facility] [employer] Advance Directives * Full Code - Default (Latest Code Status on File) Date Activated Date Inactivated Comments 10/08/2024 1:15 AM 10/11/2024 8:31 PM This is orde r is used when code status has not been discussed with the patient, or code status is otherwise unknown/unconfirmed To update the patient's code status, place a code status order. Do not modify or discontinue any currently active code status orders. * Full Code - Confirmed Date Activated Date Inactivated Comments 10/07/2024 3:30 AM 10/08/2024 1:[address] [facility] was ascertained in the following way: Code status discussion: discussion with patient To update the patient's code status, place a code status order. Do not modify or discontinue any currently active code status orders. * Full Code - Default Date Activated Date Inactivated Comments 10/05/2024 8:08 PM 10/05/2024 11:30 PM This is ord er is used when code status has not been discussed with the patient, or code status is otherwise unknown/unconfirmed To update the patient's code status, place a code status order. Do not modify or discontinue any currently active code status orders. Care Teams Team Cdl Driver Relationship Specialty Start Date End Date Physician, No Pcp PCP - General 03/26/24
--- OUTSIDE RECORDS SUMMARY | 2024-12-20 15:41 | XMS_ITS ---
Author Organization [facility] Address [address] [place] [address] Phone Care Team Providers Care Smoke Chaser Name Role Phone Physician, No Pcp Primary Care Provider Unavaila ble [facility] - Food Insecurity Status:Ongoing (Active) Start date:08/18/2024 Enrollment date:08/18/2024 Enrollment reason:Referred from clinic Related program episode:Community Health Worker Program (Active) Overview Community Health Worker Program - Food Insecurity Service Episode Case Team Name Relationship Phone Brian Larios(Responsible Staff) Community Health Worker Continued Care and Services Coordination
== END 2024-12-20 15:04 | disposition home or self-care (01) ==
LOC: HO.HMCFMS 14:32
PROVIDERS: PCP Student in an Organized Health Care Education/Training Program; Visit Provider Student in an Organized Health Care Education/Training Program
DX: M54.50 Low back pain, unspecified (principal); G89.29 Other chronic pain